=== PATIENT | male | born 1965 | race Caucasian/White ===

== ENCOUNTER 2017-06-22 08:59 | Emergency (ER) | payer OTHER ==
[2017-06-22 09:05] VITALS: BP 138/75
[2017-06-22] MEDS ORDERED: DIPH/PERTUSS(ACELL)/TETANUS VAC/PF 0.5 ML SYR (>=10YO) IM ONE (09:28)
[2017-06-22] MEDS ORDERED: CLINDAMYCIN HCL 150 MG CAPSULE PO ONE (09:28)
--- NOTE | 2017-06-22 09:31 | ER Document Report ---
HPI - HPI Patient complains to provider of: need for tetanus shot Onset: Other - 3 days Onset/Duration: Persistent Quality of pain: Achy Pain Level: 4 Context: Patient states that he stepped up on 8 wood step that broke and the screws scraped his left lower leg. Injury occurred 3 days ago. Patient states wound has continued to use. Patient denies any fever. Patient states that he is here as he needs a tetanus immunization. Associated Symptoms: denies: Fever Exacerbated by: Denies Relieved by: Denies Similar symptoms previously: No Recently seen / treated by doctor: No - ROS ROS below otherwise negative: Yes Systems Reviewed and Negative: Yes All other systems reviewed and negative - CONSTITUTIONAL Constitutional: DENIES: Fever, Chills - REPRODUCTIVE Reproductive: DENIES: : - MUSCULOSKELETAL Musculoskeletal: REPORTS: Extremity pain - DERM Skin Color: Erythema Skin Problems: Abrasion, Laceration Past Medical History - General Information source: Patient - Social History Smoking Status: Never Smoker Frequency of alcohol use: None Drug Abuse: None Occupation: Retired Lives with: Family Family History: Reviewed & Not Pertinent Endocrine Medical History: Reports: Hx Hypothyroidism GI Medical History: Reports: Hx Gastroesophageal Reflux Disease, Hx Irritable Bowel Musculoskeltal Medical History: Reports Hx Arthritis, Reports Hx Musculoskeletal Deformity, Reports Hx Musculoskeletal Trauma Psychiatric Medical History: Reports: Hx Post Traumatic Stress Disorder Traumatic Medical History: Reports: Hx Fractures - finger Past Surgical History: Reports: Hx Adenoidectomy, Hx Nose Surgery, Hx Tonsillectomy - Immunizations Immunizations up to date: Yes Hx Diphtheria, Pertussis, Tetanus Vaccination: Yes Vertical Provider Document - CONSTITUTIONAL Agree With Documented VS: Yes Exam Limitations: No Limitations General Appearance: WD/WN, No Apparent Distress - INFECTION CONTROL TRAVEL OUTSIDE OF THE [place] IN LAST 30 DAYS: No - HEENT HEENT: Atraumatic, Normocephalic - NECK Neck: Normal Inspection - RESPIRATORY Respiratory: No Respiratory Distress O2 Sat by Pulse Oximetry: 99 - MUSCULOSKELETAL/EXTREMETIES Musculoskeletal/Extremeties: MAEW, Tender - Tenderness to lateral aspect of left lower leg, No Edema - NEURO Level of Consciousness: Awake, Alert, Appropriate Motor/Sensory: No Motor Deficit - DERM Integumentary: Warm, Dry, Laceration - Healing laceration to the lateral aspect of left lower extremity. Wound edges erythematous concerning for developing cellulitis Course - Vital Signs Vital signs: Temp Pulse Resp BP Pulse Ox 98.0 F 58 L 20 138/75 H 99 06/22/17 09:04 06/22/17 09:04 06/22/17 09:04 06/22/17 09:04 06/22/17 09:04 Discharge - Discharge Clinical Impression: Leg laceration Qualifiers: Encounter type: initial encounter Laterality: left Qualified Code(s): S81.812A - Laceration without foreign body, left lower leg, initial encounter Cellulitis Qualifiers: Site of cellulitis: extremity Site of cellulitis of extremity: lower extremity Laterality: left Qualified Code(s): L03.116 - Cellulitis of left lower limb Condition: Stable Disposition: HOME, SELF-CARE Instructions: Clindamycin ([facility]), Dressing Instructions for Open Wounds ([facility]), Soap Cleansing ([facility]), Tetanus Immunization Given ([facility]) Additional Instructions: Return immediately for any new or worsening symptoms Followup with your primary care provider, call tomorrow to make a followup appointment Prescriptions: Clindamycin HCl [Cleocin Hcl] 300 mg PO QID #28 capsule Naproxen [Naprosyn 250 Nmg Tablet] 1 tab PO BID #14 tablet Referrals: [facility] [Provider Group] - Follow up as needed
== END 2017-06-22 10:15 | disposition home or self-care (01) ==
LOC: ER 08:59
DX: S81.812A Laceration without foreign body, left lower leg, initial encounter (principal); L03.116 Cellulitis of left lower limb; W26.8XXA Contact with other sharp object(s), not elsewhere classified, initial encounter; Z23 Encounter for immunization
CPT/HCPCS: 90471; 90715; 99282

== ENCOUNTER 2017-07-12 09:38 | Day surgery (SDC) | payer OTHER ==
[~2017-07-12 09:38] MED LIST: PROPOFOL INJ 200 MG/20 ML VIAL IV ONE
[2017-07-12 11:27] VITALS: BP 120/78
--- NOTE | 2017-07-12 11:58 | Operative Report ---
Operative Report DATE OF SURGERY: 07/12/17 Operative Report: The risks, benefits and alternatives of the procedure including risks of bleeding, perforation requiring surgery are explained to the patient in detail and informed consent was obtained. Patient is taken back to the endoscopy suite and placed in a left, lateral decubital position. Timeout was called. Propofol medications administered. A rectal examination is done which did not reveal any masses, tears or fissures. An Olympus videoscope was inserted into the patient's rectum. The scope is then carefully advanced all the way to the cecum. The cecum is identified by the usual anatomical landmarks including the ileocecal valve as well as the appendiceal office. Photodocumentation was obtained. Prep was good. The scope was then sequentially pulled back via the various segments of the colon including the ascending colon, hepatic flexure, transverse colon, splenic flexure, descending colon and finally into the rectosigmoid portions of the colon. Retroflexion maneuvers is performed PREOPERATIVE DIAGNOSIS: Colorectal cancer screening POSTOPERATIVE DIAGNOSIS: Normal screening colonoscopy OPERATION: Diagnostic colonoscopy SURGEON: YVONNE NUÑEZ ANESTHESIA: LMAC TISSUE REMOVED OR ALTERED: None. COMPLICATIONS: None. ESTIMATED BLOOD LOSS: None. INTRAOPERATIVE FINDINGS: As noted above. PROCEDURE: Patient tolerated procedure well. No immediate postprocedure complications are noted. Patient discharged in good condition. Discharge date 07/12/2017. Discharge diet: Regular. Discharge activity: Regular. 10 year surveillance colonoscopy. Patient is instructed to call the office or proceed to the emergency room should there be any further problems or questions.
== END 2017-07-12 10:57 | disposition home or self-care (01) ==
LOC: END 09:38
PROVIDERS: ATTEND Internal Medicine Gastroenterology
DX: Z12.11 Encounter for screening for malignant neoplasm of colon (principal); Z86.010 Personal history of colon polyps; E03.9 Hypothyroidism, unspecified; Z79.899 Other long term (current) drug therapy
CPT/HCPCS: 45378; J2704; 812

== ENCOUNTER 2018-07-27 11:40 | Emergency (ER) | payer OTHER ==
--- NOTE | 2018-07-27 11:47 | ER Document Report ---
ED Medical Screen (RME) - General Chief Complaint: Chest Pain Stated Complaint: CHEST PAIN Primary Care Provider: DEIDRA COOMBS MD [Primary Care Provider] - Follow up as needed TRAVEL OUTSIDE OF THE [place]. IN LAST 30 DAYS: No - HPI Notes: 07/27/18 11:45 Patient is a 53-year-old male with a history of obstructive sleep apnea, hypothyroidism, family history of NH at young age who presents to the emergency department complaining of intermittent chest pain primarily in the left side over the past month that will radiate down into his arm/shoulder. Patient was sent by the [place] [facility] who states that he may have left ventricular hypertrophy on EKG, but no other abnormal findings noted. Nothing improves/worsens his pain. No history of NH/PE. Denies any headache, fever, neck pain, URI, sore throat, palpitations, syncope, cough, shortness of breath, wheeze, dyspnea, abdominal pain, nausea/vomiting/diarrhea, urinary retention, dysuria, hematuria, back pain, or rash. I have treated and performed a rapid initial assessment of this patient. A comprehensive ED assessment and evaluation of the patient, analysis of test results and completion of medical decision making process will be conducted by additional ED providers. PHYSICAL EXAMINATION: GENERAL: Well-appearing, well-nourished and in no acute distress. A&Ox4. Answers questions appropriately. LUNGS: Breath sounds clear to auscultation bilaterally and equal. No wheezes rales or rhonchi. HEART: Regular rate and rhythm without murmurs, rubs, gallops. Extremities: No cyanosis, clubbing, or edema b/l. No LE asymmetry. Rae neg b/l. NEUROLOGICAL: Normal speech, normal gait. PSYCH: Normal mood, normal affect. - Related Data Allergies/Adverse Reactions: Penicillins Allergy (Verified 07/27/18 11:41) Past Medical History - Social History Family history: CAD, CVA, Malignancy - Past Medical History Cardiac Medical History: Denies: Hx Coronary Artery Disease, Hx Heart Attack, Hx Hypertension Pulmonary Medical History: Reports: Hx Pneumonia Denies: Hx Asthma, Hx Bronchitis, Hx COPD Neurological Medical History: Denies: Hx Cerebrovascular Accident, Hx Seizures Endocrine Medical History: Reports: Hx Hypothyroidism Renal/ Medical History: Denies: Hx Peritoneal Dialysis GI Medical History: Reports: Hx Gastroesophageal Reflux Disease, Hx Irritable Bowel Musculoskeltal Medical History: Reports Hx Arthritis, Reports Hx Musculoskeletal Deformity, Reports Hx Musculoskeletal Trauma Psychiatric Medical History: Reports: Hx Post Traumatic Stress Disorder Traumatic Medical History: Reports: Hx Fractures - finger Past Surgical History: Reports: Hx Adenoidectomy, Hx Nose Surgery, Hx Tonsillectomy - Immunizations Immunizations up to date: Yes Hx Diphtheria, Pertussis, Tetanus Vaccination: Yes Influenza Administration Date for 01/2017 - 06/2017 Season: 05/06/17 Doctor's Discharge - Discharge Referrals: DEIDRA COOMBS MD [Primary Care Provider] - Follow up as needed
[2018-07-27 12:37] LABS: ABSOLUTE EOSINOPHILS # (AUTO) 0.1 10^3/uL (0.0-0.6); ABSOLUTE LYMPHOCYTES (AUTO) 1.2 10^3/uL (0.5-4.7); ABSOLUTE MONOCYTES (AUTO) 0.6 10^3/uL (0.1-1.4); ABSOLUTE NEUT (AUTO) 2.3 10^3/uL (1.7-8.2); BASOPHILS % (AUTO) 0.6 % (0-2); EOSINOPHILS % (AUTO) 2.1 % (0-6); HEMATOCRIT 41.5 % (37.9-51.0); HEMOGLOBIN 14.8 g/dL (13.5-17.0); MEAN CORPUSCULAR HEMOGLOBIN 32.7 pg (27.0-33.4); MEAN CORPUSCULAR HGB CONC 35.7 g/dL (32.0-36.0); MEAN CORPUSCULAR VOLUME 91 fl (80-97); MONOCYTES % (AUTO) 14.9 % (3-13); PLATELET COUNT 208 10^3/uL (150-450); RED BLOOD COUNT 4.54 10^6/uL (4.35-5.55); SEGMENTED NEUTROPHILS % (AUTO) 54.4 % (42-78); TOTAL CELLS COUNTED % (AUTO) 100 %; WHITE BLOOD COUNT 4.3 10^3/uL (4.0-10.5)
--- NOTE | 2018-07-27 12:38 | RADIOLOGY REPORT (SQ) ---
EXAM DESCRIPTION: CHEST SINGLE VIEW COMPLETED DATE/TIME: 07/27/2018 12:24 pm REASON FOR STUDY: CP COMPARISON: None. EXAM PARAMETERS: NUMBER OF VIEWS: One view. TECHNIQUE: Single frontal radiographic view of the chest acquired. RADIATION DOSE: NA LIMITATIONS: None. FINDINGS: LUNGS AND PLEURA: There is significant elevation of the left hemidiaphragm with a large ga s lucency beneath the diaphragm. MEDIASTINUM AND HILAR STRUCTURES: No masses. Contour normal. HEART AND VASCULAR STRUCTURES: Heart normal in size. Normal vasculature. BONES: No acute findings. HARDWARE: None in the chest. OTHER: No other significant finding. IMPRESSION: There is significant elevation of the left hemidiaphragm with a large gas lucency beneat h the diaphragm. This is likely colonic gas although a very unusual pneumothorax is not strictly exc luded. Consider CT to further evaluate in the setting of acute referral chest pain. TECHNICAL DOCUMENTATION: JOB ID: [id number] [employer]- All Rights Reserved Reading location - IP/workstation name: [email or web address]
[2018-07-27 12:43] LABS: APPEARANCE,URINE CLEAR; BILIRUBIN,URINE NEGATIVE (NEGATIVE); COLOR,URINE COLORLESS; GLUCOSE, URINE NEGATIVE (NEGATIVE); KETONES,URINE NEGATIVE (NEGATIVE); LEUKOCYTE ESTERASE,URINE NEGATIVE (NEGATIVE); NITRITE,URINE NEGATIVE (NEGATIVE); PROTEIN,URINE NEGATIVE (NEGATIVE); URINE SPECIFIC GRAVITY 1.004; UROBILINOGEN,URINE NEGATIVE mg/dL (<2.0)
[2018-07-27 13:03] LABS: ALANINE AMINOTRANSFERASE 40 U/L (21-72); ALBUMIN 4.3 g/dL (3.5-5.0); ALKALINE PHOSPHATASE 46 U/L (38-126); ANION GAP 7 (5-19); ASPARTATE AMINO TRANSFERASE 29 U/L (17-59); BILIRUBIN,DIRECT 0.3 mg/dL (0.0-0.4); BILIRUBIN,TOTAL 0.8 mg/dL (0.2-1.3); BLOOD UREA NITROGEN 15 mg/dL (7-20); CALCIUM 9.3 mg/dL (8.4-10.2); CARBON DIOXIDE 29 mmol/L (22-30); CHLORIDE 105 mmol/L (98-107); CREATINE KINASE 104 U/L (55-170); POTASSIUM 4.3 mmol/L (3.6-5.0); SODIUM 140.5 mmol/L (137-145); TOTAL PROTEIN 7.4 g/dL (6.3-8.2)
--- NOTE | 2018-07-27 13:10 | ER Document Report ---
ED General - General Chief Complaint: Chest Pain Stated Complaint: CHEST PAIN Time Seen by Provider: 07/27/18 11:59 Primary Care Provider: DEIDRA COOMBS MD [Primary Care Provider] - Follow up as needed Mode of Arrival: Ambulatory Information source: Patient, [facility] Records Notes: 53-year-old male patient is sent from the [place] [facility] for evaluation of 1 month history of intermittent left-sided chest pain radiating to the shoulder, scapula, and arm. They did an EKG and felt it showed some abnormality. He does have a strong family history of early age onset coronary artery disease with a sister and other aunts uncles and grandparents in their 30s and 40s from sudden cardiac events. He has a half brother who had several MIs in his 40s, but has survived and has multiple stents. He does report that he normally rubs his left chest with his left hand and his right chest with his right hand, but this morning rubbed his left chest with his right hand and noted a hard lump swelling along the left parasternal chest region. He is also reported some difficulty with swallowing at times thinking his diaphragm does not move properly. This is subsequent to a Ann fundoplication done about 16 years ago. At the time he had extreme swallowing problems and actually lost about 50 pounds. This morning the patient noted the left anterior chest pain was worse than usual and was also feeling it at his elbow on the left side. Because he felt the knot in his left anterior chest wall he is concerned due to family history of cancer, and the family history of early age onset coronary artery disease and sudden . He went to the [place] clinic to be checked out for this, and they referred him to the emergency room. TRAVEL OUTSIDE OF THE [place] IN LAST 30 DAYS: No - Related Data Allergies/Adverse Reactions: Penicillins Allergy (Verified 07/27/18 11:41) Past Medical History - General Information source: Patient, [facility] Records - Social History Smoking Status: Never Smoker Cigarette use (# per day): No Chew tobacco use (# tins/day): No Smoking Education Provided: No Frequency of alcohol use: None Drug Abuse: None Occupation: Retired Lives with: Family Family History: Reviewed & Not Pertinent Patient has suicidal ideation: No Patient has homicidal ideation: No Pulmonary Medical History: Reports: Hx Pneumonia Endocrine Medical History: Reports: Hx Hypothyroidism GI Medical History: Reports: Hx Gastroesophageal Reflux Disease, Hx Irritable Bowel - IBS diarrhea type. Musculoskeletal Medical History: Reports Hx Arthritis, Reports Hx Musculoskeletal Deformity, Reports Hx Musculoskeletal Trauma Psychiatric Medical History: Reports: Hx Post Traumatic Stress Disorder Traumatic Medical History: Reports: Hx Fractures - finger Past Surgical History: Reports: Hx Abdominal Surgery - Ann fundoplication with hiatal hernia repair about in 2001., Hx Adenoidectomy, Hx Nose Surgery, Hx Tonsillectomy - Immunizations Immunizations up to date: Yes Hx Diphtheria, Pertussis, Tetanus Vaccination: Yes Review of Systems - Review of Systems Constitutional: No symptoms reported EENT: No symptoms reported Cardiovascular: See HPI Respiratory: No symptoms reported Gastrointestinal: Diarrhea - Patient has IBS diarrhea type for the past 40 years Genitourinary: No symptoms reported Musculoskeletal: No symptoms reported Skin: No symptoms reported Hematologic/Lymphatic: No symptoms reported Neurological/Psychological: No symptoms reported Physical Exam - Vital signs Vitals: Pulse Ox 97 07/27/18 11:44 - General General appearance: Appears well, Alert In distress: None - HEENT Head: Normocephalic, Atraumatic Eyes: Normal Pupils: PERRL Neck: Normal - Respiratory Respiratory status: No respiratory distress Breath sounds: Normal Chest palpation: Other - Patient does have a firm type swelling along the left medial sternal region which appears to be gynecomastia. - Cardiovascular Rhythm: Regular Heart sounds: Normal auscultation Murmur: No - Abdominal Inspection: Normal, Healed incision Distension: No distension Bowel sounds: Normal Tenderness: Nontender - Back Back: Normal - Extremities General upper extremity: Normal inspection General lower extremity: Normal inspection - Neurological Neuro grossly intact: Yes - Psychological Associated symptoms: Normal affect, Normal mood - Skin Skin Temperature: Warm Skin Moisture: Dry Skin Color: Normal Course - Vital Signs Vital signs: Temp Pulse Resp BP Pulse Ox 98.1 F 68 20 147/87 H 98 07/27/18 12:05 07/27/18 12:05 07/27/18 12:05 07/27/18 12:05 07/27/18 12:31 - Laboratory Result Diagrams: 07/27/18 12:20 07/27/18 12:20 Laboratory results interpreted by me: 07/27/18 07/27/18 12:20 12:20 Monocytes % 14.9 H Glucose 69 L - Diagnostic Test Radiology reviewed: Image reviewed, Reports reviewed - Chest x-ray shows a large gas collection above the diaphragm. Contrasted CT scan chest abdomen pelvis shows the entire gastric antrum and fundus is above the diaphragm along with a very large hiatal hernia. Discharge - Discharge Clinical Impression: Diaphragmatic hernia Qualifiers: Obstruction and gangrene presence: without obstruction or gangrene Qualified Code(s): K44.9 - Diaphragmatic hernia without obstruction or gangrene Condition: Stable Disposition: HOME, SELF-CARE Additional Instructions: Call [facility] today to schedule an appointment with either Dr. Brady or Dr. Smith in the next several days. RETURN TO THE EMERGENCY ROOM IF ANY NEW OR WORSENING SYMPTOMS. Referrals: DEIDRA COOMBS MD [Primary Care Provider] - Follow up as needed [facility] [Provider Group] - Follow up in 3-5 days
[2018-07-27 13:15] LABS: NT PRO BNP 59 pg/mL (5-900)
[2018-07-27 13:18] LABS: TROPONIN I < 0.012 ng/mL
[2018-07-27 13:19] LABS: GLUCOSE 69 mg/dL (75-110)
--- NOTE | 2018-07-27 14:39 | RADIOLOGY REPORT (SQ) ---
EXAM DESCRIPTION: CT CHEST WITH; CT ABD/PELVIS WITH IV ORAL COMPLETED DATE/TIME: 07/27/2018 2:19 pm; 07/27/2018 2:20 pm REASON FOR STUDY: L parasternal chest wall swelling and pain; swallowing difficulty 16yrs s/p Ann CONTRAST TYPE AND DOSE: contrast/concentration: Isovue mg/ml; Total Contrast Delivered: 98.0 ml; To candido Saline Delivered: 72.0 ml Additional oral enteric contrast. RENAL FUNCTION: GFR > 60. COMPARISON: Same day chest radiograph TECHNIQUE: CT scan of the chest performed using helical scanning technique with dynamic intravenous contrast injection. Images reviewed with lung, soft tissue and bone windows. Reconstructed coronal a nd sagittal MPR images reviewed. All images stored on PACS. All CT scanners at this facility use dose modulation, iterative reconstruction, and/or weight based d osing when appropriate to reduce radiation dose to as low as reasonably achievable (ALARA). [facility]: Dose Right [facility]: CareDose [facility]: Dose Right [facility]: Teradose 4D [facility]: Smart OuiCar RADIATION DOSE: CT Rad equipment meets quality standard of care and radiation dose reduction techniq ues were employed. CTDIvol: NaN - NaN mGy. DLP: 0 mGy-cm.. LIMITATIONS: None. FINDINGS: AXILLAE: No adenopathy. CHEST WALL: No masses. No subcutaneous air. LUNGS: No nodules or masses. No pneumothorax. Scarring and atelectasis of the left lung base adjace nt to a large hiatal hernia. PLEURA: No effusions. No calcifications. THYROID: No masses or significant asymmetry. HILAR AND MEDIASTINAL STRUCTURES: Large hiatal hernia with complete intrathoracic position of the gas tric body and fundus in the left hemithorax. There is no overt gastric volvulus. AORTA AND GREAT VESSELS: No aneurysm. No dissection. PULMONARY ARTERIES: No identified pulmonary emboli. Study not optimized for the pulmonary arteries. HEART: No pericardial effusion. HARDWARE AND LIFELINES: None. BONES: No significant finding. OTHER: No other significant finding. IMPRESSION: Large hiatal hernia with complete intrathoracic position of the gastric body and fundus in the left hemithorax. There is no overt gastric volvulus, however with a hiatal hernia of this siz e, there is a risk of incomplete or intermittent volvulus. Consider surgical evaluation in the setti ng of acute pain. COMPARISON: None. RADIATION DOSE: CT Rad equipment meets quality standard of care and radiation dose reduction techniq ues were employed. CTDIvol: NaN - NaN mGy. DLP: 0 mGy-cm.mGy. TECHNIQUE: CT scan of the abdomen and pelvis performed with intravenous and oral contrast using miroslava dean scanning technique with dynamic intravenous contrast injection. Images reviewed with lung, soft tissue and bone windows. Reconstructed coronal and sagittal MPR images reviewed. Delayed images for evaluation of the urinary system also acquired and evaluated. All images stored on PACS. All CT scanners at this facility use dose modulation, iterative reconstruction, and/or weight based d osing when appropriate to reduce radiation dose to as low as reasonably achievable (ALARA). [facility]: Dose Right [facility]: SureCare [facility]: Dose Right [facility]: Teradose 4D [facility]: Kast FINDINGS: LIVER: Normal size. No masses. No dilated ducts. SPLEEN: Normal size. No focal lesions. PANCREAS: No masses. No significant calcifications. No adjacent inflammation or peripancreatic flui d collections. Pancreatic duct not dilated. GALLBLADDER: No identified stones by CT criteria. No inflammatory changes to suggest cholecystitis. ADRENAL GLANDS: No significant masses or asymmetry. RIGHT KIDNEY AND URETER: No solid masses. No significant calcification. No hydronephrosis or hydroure ter. LEFT KIDNEY AND URETER: No solid masses. No significant calcification. No hydronephrosis or hydrouret er. AORTA AND VESSELS: No aneurysm. No dissection. Renal arteries, SMA, celiac without stenosis. RETROPERITONEUM: No retroperitoneal adenopathy, hemorrhage or masses. LARGE AND SMALL BOWEL: Large hiatal hernia as described above. No dilatation. No masses. No wall t hickening. APPENDIX: Normal. ABDOMINAL WALL: No hernia or masses. PERITONEAL CAVITY: No free air. No free fluid. No peritoneal implants or masses. PELVIS: No mass or free fluid. Normal bladder. BONES: No significant or acute findings. OTHER: No other significant finding. IMPRESSION: Large hiatal hernia as described above with complete intrathoracic position of the stoma ch. No additional CT abnormality of the abdomen or pelvis. TECHNICAL DOCUMENTATION: JOB ID: [id number] Quality ID # [id number]: Final reports with documentation of one or more dose reduction techniques (e.g., Au tomated exposure control, adjustment of the mA and/or kV according to patient size, use of iterative reconstruction technique) 2010 [employer]- All Rights Reserved Reading location - IP/workstation name: [email or web address]
[2018-07-27 15:17] VITALS: BP 126/85
--- NOTE | 2018-07-27 18:49 | EKG REPORT ---
SEVERITY:- ABNORMAL ECG - SINUS RHYTHM CONSIDER LEFT VENTRICULAR HYPERTROPHY : Confirmed by: Shaan Perla MD 27-Jul-2018 18:48:57
== END 2018-07-27 15:16 | disposition home or self-care (01) ==
LOC: ER 11:40
DX: K44.9 Diaphragmatic hernia without obstruction or gangrene (principal); R07.9 Chest pain, unspecified; R13.10 Dysphagia, unspecified; M25.522 Pain in left elbow; R19.7 Diarrhea, unspecified; Z88.0 Allergy status to penicillin; Z82.49 Family history of ischemic heart disease and other diseases of the circulatory system
CPT/HCPCS: 36415; 71045; 71260; 74177; 80053; 81001; 82550; 83880; 84484; 85025; 93005; 93010; 99285

== ENCOUNTER 2018-07-29 17:21 | Emergency (ER) | payer OTHER ==
--- NOTE | 2018-07-29 18:18 | ER Document Report ---
ED Medical Screen (RME) - General Chief Complaint: Chest Pain Stated Complaint: DIFFICULTY BREATHING Time Seen by Provider: 07/29/18 18:09 Primary Care Provider: DEIDRA COOMBS MD [Primary Care Provider] - Follow up as needed Notes: Patient is a 53-year-old male with a recently diagnosed diaphragmatic hernia who presents to the ED with worsening pain and discomfort. Patient reports no vomiting but states he does have some nausea. He does have a history of hiatal hernia repair which prevents him from vomiting. Patient has not had fever. Patient does come with [facility] in hand regarding his recent diagnoses. Exam: Abdomen soft without obvious distention. Patient alert, oriented, answering all questions appropriately. I have greeted and performed a rapid initial assessment of this patient. A co mprehensive ED assessment and evaluation of the patient, analysis of test results and completion of the medical decision making process will be conducted by additional ED providers. Dictation of this chart was performed using voice recognition software; therefore, there may be some unintended grammatical errors. TRAVEL OUTSIDE OF THE [place]. IN LAST 30 DAYS: No - Related Data Allergies/Adverse Reactions: Penicillins Allergy (Verified 07/27/18 11:41) Past Medical History - Social History Family history: CAD, CVA, Malignancy - Past Medical History Cardiac Medical History: Denies: Hx Coronary Artery Disease, Hx Heart Attack, Hx Hypertension Pulmonary Medical History: Reports: Hx Pneumonia Denies: Hx Asthma, Hx Bronchitis, Hx COPD Neurological Medical History: Denies: Hx Cerebrovascular Accident, Hx Seizures Endocrine Medical History: Reports: Hx Hypothyroidism Renal/ Medical History: Denies: Hx Peritoneal Dialysis GI Medical History: Reports: Hx Gastroesophageal Reflux Disease, Hx Irritable Bowel - IBS diarrhea type. Musculoskeltal Medical History: Reports Hx Arthritis, Reports Hx Musculoskeletal Deformity, Reports Hx Musculoskeletal Trauma Psychiatric Medical History: Reports: Hx Post Traumatic Stress Disorder Traumatic Medical History: Reports: Hx Fractures - finger Past Surgical History: Reports: Hx Abdominal Surgery - Ann fundoplication with hiatal hernia repair about in 2001., Hx Adenoidectomy, Hx Nose Surgery, Hx Tonsillectomy - Immunizations Immunizations up to date: Yes Hx Diphtheria, Pertussis, Tetanus Vaccination: Yes Influenza Administration Date for 01/2017 - 06/2017 Season: 05/06/17 Physical Exam - Vital signs Vitals: Temp Pulse Resp BP Pulse Ox 98.3 F 99 15 118/74 95 07/29/18 17:45 07/29/18 17:45 07/29/18 17:45 07/29/18 17:45 07/29/18 17:45 Course - Vital Signs Vital signs: Temp Pulse Resp BP Pulse Ox 98.3 F 99 15 118/74 95 07/29/18 17:45 07/29/18 17:45 07/29/18 17:45 07/29/18 17:45 07/29/18 17:45 Doctor's Discharge - Discharge Referrals: DEIDRA COOMBS MD [Primary Care Provider] - Follow up as needed
--- NOTE | 2018-07-29 18:37 | EKG REPORT ---
SEVERITY:- ABNORMAL ECG - SINUS RHYTHM NONSPECIFIC T ABNORMALITIES, LATERAL LEADS : Confirmed by: Shaan Perla MD 29-Jul-2018 18:36:38
[2018-07-29 18:42] LABS: ABSOLUTE EOSINOPHILS # (AUTO) 0.1 10^3/uL (0.0-0.6); ABSOLUTE LYMPHOCYTES (AUTO) 1.2 10^3/uL (0.5-4.7); ABSOLUTE MONOCYTES (AUTO) 0.7 10^3/uL (0.1-1.4); ABSOLUTE NEUT (AUTO) 2.4 10^3/uL (1.7-8.2); BASOPHILS % (AUTO) 0.6 % (0-2); EOSINOPHILS % (AUTO) 2.3 % (0-6); HEMATOCRIT 42.8 % (37.9-51.0); LYMPHOCYTES % (AUTO) 26.8 % (13-45); MEAN CORPUSCULAR HEMOGLOBIN 32.4 pg (27.0-33.4); MEAN CORPUSCULAR VOLUME 93 fl (80-97); MONOCYTES % (AUTO) 14.8 % (3-13); PLATELET COUNT 213 10^3/uL (150-450); RED BLOOD COUNT 4.62 10^6/uL (4.35-5.55); RED CELL DISTRIBUTION WIDTH 13.5 % (11.5-14.0); SEGMENTED NEUTROPHILS % (AUTO) 55.5 % (42-78); TOTAL CELLS COUNTED % (AUTO) 100 %; WHITE BLOOD COUNT 4.4 10^3/uL (4.0-10.5)
[2018-07-29 19:02] LABS: ALANINE AMINOTRANSFERASE 28 U/L (21-72); ALBUMIN 4.3 g/dL (3.5-5.0); ALKALINE PHOSPHATASE 47 U/L (38-126); ANION GAP 7 (5-19); ASPARTATE AMINO TRANSFERASE 33 U/L (17-59); BILIRUBIN,DIRECT 0.4 mg/dL (0.0-0.4); BILIRUBIN,TOTAL 0.9 mg/dL (0.2-1.3); BLOOD UREA NITROGEN 13 mg/dL (7-20); CALCIUM 9.7 mg/dL (8.4-10.2); CARBON DIOXIDE 28 mmol/L (22-30); CHLORIDE 107 mmol/L (98-107); GLUCOSE 79 mg/dL (75-110); POTASSIUM 4.7 mmol/L (3.6-5.0); SODIUM 141.6 mmol/L (137-145); TOTAL PROTEIN 7.5 g/dL (6.3-8.2)
--- NOTE | 2018-07-29 23:44 | ER Document Report ---
ED General - General Chief Complaint: Chest Pain Stated Complaint: DIFFICULTY BREATHING Time Seen by Provider: 07/29/18 18:09 Primary Care Provider: DEIDRA COOMBS MD [NO LOCAL MD] - Follow up as needed Notes: Patient is a 53-year-old male with a past medical history of a Ann fundal location, prior hiatal hernia repair, presents with 1 month of chest discomfort, shortness of breath, nausea and intermittent dry heaving. States that his symptoms became worse within the past 1 week. Was seen in the emergency room 2 days ago for the same, had an extensive workup that did show a very prominent hiatal hernia. [facility], was instructed to return to the emergency department. So nothing is new or different otherwise regarding his symptoms today. Does describe his symptoms as being moderate to severe, constant in nature, pressure-like sensation in the [place]. No radiation of the pain. States that he feels nauseated but has not had diaphoresis. Denies any of breath. Denies any known history of coronary artery disease. No history of DVT or pulmonary embolus. TRAVEL OUTSIDE OF THE [place] IN LAST 30 DAYS: No - Related Data Allergies/Adverse Reactions: Penicillins Allergy (Verified 07/27/18 11:41) Past Medical History - General Information source: Patient - Social History Smoking Status: Never Smoker Frequency of alcohol use: None Drug Abuse: None Lives with: Family Family History: Reviewed & Not Pertinent Patient has suicidal ideation: No Patient has homicidal ideation: No - Past Medical History Cardiac Medical History: Denies: Hx Coronary Artery Disease, Hx Heart Attack, Hx Hypertension Pulmonary Medical History: Reports: Hx Pneumonia Denies: Hx Asthma, Hx Bronchitis, Hx COPD Neurological Medical History: Denies: Hx Cerebrovascular Accident, Hx Seizures Endocrine Medical History: Reports: Hx Hypothyroidism Renal/ Medical History: Denies: Hx Peritoneal Dialysis GI Medical History: Reports: Hx Gastroesophageal Reflux Disease, Hx Irritable B owel - IBS diarrhea type. Musculoskeletal Medical History: Reports Hx Arthritis, Reports Hx Musculoskeletal Deformity, Reports Hx Musculoskeletal Trauma Psychiatric Medical History: Reports: Hx Post Traumatic Stress Disorder Traumatic Medical History: Reports: Hx Fractures - finger Past Surgical History: Reports: Hx Abdominal Surgery - Ann fundoplication with hiatal hernia repair about in 2001., Hx Adenoidectomy, Hx Nose Surgery, Hx Tonsillectomy - Immunizations Immunizations up to date: Yes Hx Diphtheria, Pertussis, Tetanus Vaccination: Yes Review of Systems - Review of Systems Notes: Constitutional: Negative for fever. HENT: Negative for sore throat. Eyes: Negative for visual changes. Cardiovascular: Positive for chest discomfort Respiratory: Negative for shortness of breath. Gastrointestinal: Negative for abdominal pain, positive for nausea Genitourinary: Negative for dysuria. Musculoskeletal: Negative for back pain. Skin: Negative for rash. Neurological: Negative for headaches, weakness or numbness. 10 point ROS negative except as marked above and in HPI. Physical Exam - Vital signs Vitals: Temp Pulse Resp BP Pulse Ox 98.3 F 99 15 118/74 95 07/29/18 17:45 07/29/18 17:45 07/29/18 17:45 07/29/18 17:45 07/29/18 17:45 Interpretation: Normal Notes: PHYSICAL EXAMINATION: GENERAL: Well-appearing, well-nourished and in no acute distress. HEAD: Atraumatic, normocephalic. EYES: Pupils equal round and reactive to light, extraocular movements intact, sclera anicteric, conjunctiva are normal. ENT: nares patent, oropharynx clear without exudates. Moist mucous membranes. NECK: Normal range of motion, supple without lymphadenopathy LUNGS: Breath sounds clear to auscultation bilaterally and equal. No wheezes rales or rhonchi. HEART: Regular rate and rhythm without murmurs ABDOMEN: Soft, nontender, normoactive bowel sounds. No guarding, no rebound. No masses appreciated. EXTREMITIES: Normal range of motion, no pitting or edema. No cyanosis. NEUROLOGICAL: No focal neurological deficits. Moves all extremities spontaneously and on command. PSYCH: Normal mood, normal affect. SKIN: Warm, Dry, normal turgor, no rashes or lesions noted. Course - Re-evaluation Re-evalutation: 07/29/18 23:42 Patient presents with unchanged symptoms from 07/27. At that time he had a CTA of his chest CT abdomen pelvis which did demonstrate a significant hiatal hernia in the thoracic cavity. The [facility], encouraged to come back to the emergency department given the ongoing nature of his chest discomfort, stomach heaviness and shortness of breath. His EKG, labs unchanged. I do not believe repeat CT imaging of the chest abdomen pelvis is indicated today as this was completed less than 48 hours ago and the patient does not demonstrate symptoms that would suggest an acute volvulus or twisting of his la rge hiatal hernia. He is resting comfortably, holding a long conversation with me in a very calm tone and denies any significant pain. He also is very clear to state that his pain is in no way shape or form different than when he was here on 07/27 only that has not gotten better. I have advised him that he will need to follow closely with general surgery as he likely requires operative repair of his very large hiatal hernia. He states understanding. At this time will discharge with return precautions and follow-up recommendations. Verbal discharge instructions given a the bedside and opportunity for questions given. Medication warnings reviewed. Patient is in agreement with this plan and has verbalized understanding of return precautions and the need for primary care follow-up in the next 24-72 hours. - Vital Signs Vital signs: Temp Pulse Resp BP Pulse Ox 97.5 F 64 19 141/89 H 100 07/29/18 23:58 07/29/18 23:58 07/29/18 23:58 07/29/18 23:58 07/29/18 23:58 - Laboratory Result Diagrams: 07/29/18 18:23 07/29/18 18:23 Laboratory results interpreted by me: 07/29/18 18:23 Monocytes % 14.8 H - EKG Interpretation by Me Additional EKG results interpreted by me: 07/29/18 23:43 Sinus rhythm, rate 90. No ST elevations or depressions. Unchanged from previous EKG. Discharge - Discharge Clinical Impression: Chest discomfort Diaphragmatic hernia Qualifiers: Obstruction and gangrene presence: without obstruction or gangrene Qualified Code(s): K44.9 - Diaphragmatic hernia without obstruction or gangrene Condition: Good Disposition: HOME, SELF-CARE Additional Instructions: Please follow-up very closely with general surgery regarding your very large hiatal hernia. Please return immediately if you have worsening of your pain especially abruptly, began having severe nausea dry heaving, increased shortness of breath, pass out or have any other symptoms that are worrisome to you Prescriptions: Promethazine HCl [Phenergan 25 mg Tablet] 1 - 2 tab PO Q6H PRN #15 tablet PRN Reason: Referrals: MASQUIL,DEIDRA, MD [NO LOCAL MD] - Follow up as needed
[2018-07-29] MEDS ORDERED: PROMETHAZINE HCL 25 MG TABLET PO ONE (23:45)
[2018-07-29 23:59] VITALS: BP 141/89
== END 2018-07-29 23:59 | disposition home or self-care (01) ==
LOC: ER 17:21
DX: K44.9 Diaphragmatic hernia without obstruction or gangrene (principal); R07.9 Chest pain, unspecified; R06.02 Shortness of breath; R11.0 Nausea; Z98.890 Other specified postprocedural states; Z88.0 Allergy status to penicillin; Z87.01 Personal history of pneumonia (recurrent); Z87.19 Personal history of other diseases of the digestive system
CPT/HCPCS: 36415; 80053; 84484; 85025; 93005; 93010; 99283

== ENCOUNTER → 2018-09-21 | Outpatient (CLI) | payer OTHER ==
[~2018-09-21] MED LIST changes: -PROPOFOL INJ 200 MG/20 ML VIAL IV ONE; +REGADENOSON INJ 0.4 MG/5 ML DISP.SYRIN IV ONE
--- NOTE | 2018-09-21 21:16 | DRAGON STRESS TEST REPORT ---
Intravenous Lexiscan Cardiolite stress test using single photon emmision computerized tomography. Date of procedure: 09/21/2018. Ordering Provider: Dr. aHley Velez. Patient's status: Out Patient. Indication: Patient with history of coronary artery disease for preoperative cardiac risk assessment. Coronary risk factors: Age. Resting EKG: Sinus Rhythm. EKG within normal limits. Stress EKG: No changes of ischemia. Patient had no chest pain or discomfort, and there were no arrhythmias seen. Reason for termination: Protocol. Conclusions: Normal EKG and hemodynamic response to IV Lexiscan. Nuclear data: At rest the patient was given 12.79 millicuries of technetium 99m sestamibi injected intravenously. As per protocol rest non gated SPECT images were obtained. Subsequently the patient was given intravenous Lexiscan at a dose of 0.4 mg in 5 mL intravenously, followed by flush with normal saline. Subsequently the stress dose of 36.5 millicuries of technetium 99m sestamibi was injected intravenously. As per protocol stress gated images were obtained. Nuclear interpretation: Review of images showed that there is a small area of perfusion defect of mild intensity involving the apical lateral wall in both the rest and stress images. This area is normal thickening. The rest of the segments of the myocardium had normal perfusion at rest, and normal perfusion post stress with IV Lexiscan. All segments of the myocardium had normal thickening by gated study. The left ventricle was mildly dilated, and there was mild global hypokinesis. T. I D. ratio was normal at 1.18. There is no transient ischemic dilatation of the left ventricle. Computer read rest, and stress left ventricular ejection fraction were 51 %, and 46 %, respectively. Conclusion: 1. There is no scintigraphic evidence of Lexiscan induced myocardial ischemia. 2. There is no scintigraphic evidence of myocardial infarction/scar. 3. Evidence of mild LV systolic dysfunction with mildly dilated left ventricle on the rest and stress studies. 4. Small area of soft tissue attenuation artifact involving the apical lateral wall Recommendations: 1. RECOMMEND echocardiogram for LV ejection fraction correlation. 2. Correlate clinically 3.. aggressive risk factor modification, and treating the underlying co- morbidities. Discussed with Dr. Velez the above results on the telephone. [facility] MEDICAL CENTERFlaquito
== END ==
LOC: RAD 08:53
PROVIDERS: ATTEND Internal Medicine
DX: Z01.810 Encounter for preprocedural cardiovascular examination (principal); I25.9 Chronic ischemic heart disease, unspecified
CPT/HCPCS: 93017; 78452; A9500; J2785; Q9969

== ENCOUNTER 2018-10-25 06:56 | Day surgery (SDC) | payer OTHER ==
[2018-10-04 12:07] LABS: ABSOLUTE EOSINOPHILS # (AUTO) 0.1 10^3/uL (0.0-0.6); ABSOLUTE LYMPHOCYTES (AUTO) 1.2 10^3/uL (0.5-4.7); ABSOLUTE MONOCYTES (AUTO) 0.6 10^3/uL (0.1-1.4); ABSOLUTE NEUT (AUTO) 2.1 10^3/uL (1.7-8.2); BASOPHILS % (AUTO) 0.6 % (0-2); EOSINOPHILS % (AUTO) 3.6 % (0-6); HEMATOCRIT 42.7 % (37.9-51.0); HEMOGLOBIN 14.9 g/dL (13.5-17.0); LYMPHOCYTES % (AUTO) 29.3 % (13-45); MEAN CORPUSCULAR HEMOGLOBIN 32.4 pg (27.0-33.4); MEAN CORPUSCULAR VOLUME 93 fl (80-97); MONOCYTES % (AUTO) 14.3 % (3-13); PLATELET COUNT 183 10^3/uL (150-450); RED BLOOD COUNT 4.61 10^6/uL (4.35-5.55); RED CELL DISTRIBUTION WIDTH 12.8 % (11.5-14.0); SEGMENTED NEUTROPHILS % (AUTO) 52.2 % (42-78); TOTAL CELLS COUNTED % (AUTO) 100 %; WHITE BLOOD COUNT 4.1 10^3/uL (4.0-10.5)
[2018-10-04 12:30] LABS: ANION GAP 10 (5-19); BLOOD UREA NITROGEN 13 mg/dL (7-20); CALCIUM 9.4 mg/dL (8.4-10.2); CARBON DIOXIDE 31 mmol/L (22-30); CHLORIDE 101 mmol/L (98-107); GLUCOSE 80 mg/dL (75-110); POTASSIUM 4.3 mmol/L (3.6-5.0); SODIUM 141.5 mmol/L (137-145)
--- NOTE | 2018-10-04 12:53 | EKG REPORT ---
SEVERITY:- ABNORMAL ECG - SINUS RHYTHM CONSIDER LEFT VENTRICULAR HYPERTROPHY : Confirmed by: Shaan Perla MD 04-Oct-2018 12:53:32
[~2018-10-25 06:56] MED LIST changes: +LACTATED RINGERS 1000 ML IV PRN; +LIDOCAINE 0.5% INJ-PF (5 MG/ML) 50 ML SDV SUBCUT PRN; +MIDAZOLAM 2 MG/2 ML INJ ONE; +PROPOFOL INJ 200 MG/20 ML VIAL IV ONE; -REGADENOSON INJ 0.4 MG/5 ML DISP.SYRIN IV ONE
[2018-10-25] MEDS ORDERED: PROPOFOL INJ 200 MG/20 ML VIAL IV ONE (07:30)
[2018-10-25] MEDS ORDERED: LIDOCAINE 2% INJ-PF (100 MG/5 ML) SYRINGE ONE (07:30)
[2018-10-25] MEDS ORDERED: ONDANSETRON HCL INJ/PF 4 MG/2 ML SDV IV PRN (08:52)
[2018-10-25] MEDS ORDERED: DIPHENHYDRAMINE HCL 50 MG/ML VIAL IV PRN (08:52)
[2018-10-25] MEDS ORDERED: MEPERIDINE HCL/PF INJ 25 MG/1 ML DISP.SYRIN IV PRN (08:52)
--- NOTE | 2018-10-25 09:20 | Operative Report ---
Nonrecallable Operative Report DATE OF SURGERY: 10/25/18 PREOPERATIVE DIAGNOSIS: Large hiatal hernia with intrathoracic stomach POSTOPERATIVE DIAGNOSIS: 1. Large hiatal hernia with intrathoracic stomach. 2. Reflux esophagitis. 3. Mild gastritis. OPERATION: EGD with biopsy SURGEON: MIGUEL COLBY ANESTHESIA: LMAC TISSUE REMOVED OR ALTERED: GE junction COMPLICATIONS: None apparent. ESTIMATED BLOOD LOSS: Minimal PROCEDURE: Procedure in detail: After informed consent was obtained, the patient was brought to the operating room and laid in the left lateral decubitus position. The endoscope was passed down the oropharynx, down the esophagus, and into the stomach. The stomach was insufflated with air. Stomach was in an unusual configuration, consistent with the patient's history of chronic gastric volvulus. There was some difficulty getting the scope into the duodenum, however this was successful. The duodenum appeared normal. Scope was pulled back into the gastric antrum were mild amount of gastritis was identified. Retroflexion maneuver was performed, noting no significant ulcerations or gastri tis in the cardia of the stomach. The scope was pulled up into the GE junction. There was reflux esophagitis present. Biopsy was taken at the GE junction. The GE junction appeared to reside at approximately 35 cm. The scope was pulled up the remainder of the esophagus. The remainder of the esophagus was smooth in contour without masses, lesions, or other significant abnormalities. Scope was removed from the oropharynx, and the procedure was concluded. All sponge, instrument, needle counts were correct x2. Condition: Stable.
--- NOTE | 2018-10-25 09:21 | Discharge Summary ---
Discharge Summary (SDC) - Discharge Final Diagnosis: Intrathoracic stomach, reflux esophagitis, large hiatal hernia. Date of Surgery: 10/25/18 Discharge Date: 10/25/18 Condition: Stable Treatment or Instructions: Discharge home. Diet as tolerated. Activity: Nonstrenuous. Follow-up in my office next week. [facility]errals: [facility] [[facility] - Discharge Diet: As Tolerated Respiratory Treatments at Home: Deep Breathing/Coughing, Incentive Spirometer Discharge Activity: Balance Activity w/Rest Home Care Assistance: None Needed Report the Following to Your Physician Immediately: Shortness of Breath, Nausea, Vomiting, Increase in Pain, Fever over 101 Degrees, Unusual Bleeding, Redness
[2018-10-25 10:43] VITALS: BP 133/90
[2018-10-25] MEDS ORDERED: GLYCOPYRROLATE 1 MG/5 ML VIAL ONE (11:33)
== END 2018-10-25 10:30 | disposition home or self-care (01) ==
LOC: OROUT 06:56
PROVIDERS: ATTEND Surgery
DX: K31.89 Other diseases of stomach and duodenum (principal); K44.9 Diaphragmatic hernia without obstruction or gangrene; K21.0 Gastro-esophageal reflux disease with esophagitis; K29.50 Unspecified chronic gastritis without bleeding; R06.02 Shortness of breath; E03.9 Hypothyroidism, unspecified; G47.33 Obstructive sleep apnea (adult) (pediatric); I20.9 Angina pectoris, unspecified
CPT/HCPCS: 43239; 93005; 36415; 85025; 80048; 88342 ×2; 88305 ×2; 93010; 00731; J2001; J2704; J3490; 731; J2250

== ENCOUNTER → 2018-12-02 | Day surgery (SDC) | payer OTHER ==
[~2018-12-02] MED LIST changes: -LACTATED RINGERS 1000 ML IV PRN; -LIDOCAINE 0.5% INJ-PF (5 MG/ML) 50 ML SDV SUBCUT PRN; +LIDOCAINE 2% JELLY 5 ML TUBE ONE; -MIDAZOLAM 2 MG/2 ML INJ ONE; -PROPOFOL INJ 200 MG/20 ML VIAL IV ONE
== END ==
LOC: END 10:00
PROVIDERS: ATTEND Surgery
DX: K44.9 Diaphragmatic hernia without obstruction or gangrene (principal); K21.9 Gastro-esophageal reflux disease without esophagitis
CPT/HCPCS: 91010

== ENCOUNTER 2018-12-09 05:20 | Inpatient (IN) | payer OTHER ==
[2018-12-01 10:49] LABS: HEMATOCRIT 40.9 % (37.9-51.0); HEMOGLOBIN 14.4 g/dL (13.5-17.0); MEAN CORPUSCULAR HEMOGLOBIN 32.4 pg (27.0-33.4); MEAN CORPUSCULAR HGB CONC 35.2 g/dL (32.0-36.0); MEAN CORPUSCULAR VOLUME 92 fl (80-97); PLATELET COUNT 198 10^3/uL (150-450); RED BLOOD COUNT 4.44 10^6/uL (4.35-5.55); RED CELL DISTRIBUTION WIDTH 13.5 % (11.5-14.0); WHITE BLOOD COUNT 4.4 10^3/uL (4.0-10.5)
--- NOTE | 2018-12-01 11:05 | RADIOLOGY REPORT (SQ) ---
EXAM DESCRIPTION: CHEST PA/LATERAL COMPLETED DATE/TIME: 12/01/2018 10:23 am REASON FOR STUDY: COUGH preop chest for paraesophageal hernia repair COMPARISON: CT chest abdomen pelvis 07/27/2018 AP chest 07/27/2018 EXAM PARAMETERS: NUMBER OF VIEWS: two views TECHNIQUE: Digital Frontal and Lateral radiographic views of the chest acquired. RADIATION DOSE: NA LIMITATIONS: none FINDINGS: LUNGS AND PLEURA: No opacities, masses or pneumothorax. No pleural effusion. MEDIASTINUM AND HILAR STRUCTURES: No masses or contour abnormalities. HEART AND VASCULAR STRUCTURES: Heart normal size. No evidence for failure. BONES: No acute findings. HARDWARE: None in the chest. OTHER: There is a large left paraesophageal hernia containing the GE junction, stomach fundus and bod y projected as a lucency with air-fluid level under the left hemidiaphragm. This correlates with CT chest 07/27/2018. IMPRESSION: No acute infiltrates. Large left paraesophageal hernia containing the stomach fundus and body. TECHNICAL DOCUMENTATION: JOB ID: [id number] [employer]- All Rights Reserved Reading location - IP/workstation name: [email or web address]
[2018-12-01 11:16] LABS: ANION GAP 7 (5-19); BLOOD UREA NITROGEN 15 mg/dL (7-20); CALCIUM 9.6 mg/dL (8.4-10.2); CARBON DIOXIDE 31 mmol/L (22-30); CHLORIDE 102 mmol/L (98-107); GLUCOSE 93 mg/dL (75-110); POTASSIUM 4.8 mmol/L (3.6-5.0)
--- NOTE | 2018-12-01 12:53 | EKG REPORT ---
SEVERITY:- ABNORMAL ECG - SINUS RHYTHM PROBABLE LEFT VENTRICULAR HYPERTROPHY TALL R WAVE IN V2, CONSIDER RVH OR PMI : Confirmed by: Shaan Perla MD 01-Dec-2018 12:52:59
[~2018-12-09 05:20] MED LIST changes: +ACETAMINOPHEN 325 MG TABLET PO PRN; +IBUPROFEN 800 MG in NORMAL SALINE 250 ML IV PRN; +LACTATED RINGERS 1000 ML IV PRN; +LIDOCAINE 0.5% INJ-PF (5 MG/ML) 50 ML SDV SUBCUT PRN; -LIDOCAINE 2% JELLY 5 ML TUBE ONE; +PREGABALIN 50 MG CAPSULE PO PRN; +VANCOMYCIN HCL 1,000 MG in DEXTROSE 5%-WATER 250 ML IV PRN
[2018-12-09] MEDS ORDERED: PREGABALIN 50 MG CAPSULE ONE (05:35)
[2018-12-09] MEDS ORDERED: ACETAMINOPHEN 325 MG TABLET ONE (05:35)
[2018-12-09] MEDS ORDERED: MIDAZOLAM 2 MG/2 ML INJ ONE (06:44)
[2018-12-09] MEDS ORDERED: PROPOFOL INJ 200 MG/20 ML VIAL IV ONE (06:44)
[2018-12-09] MEDS ORDERED: FENTANYL CITRATE INJ/PF 250 MCG/5 ML AMPULE ONE ×2 (06:44→09:38)
[2018-12-09] MEDS ORDERED: PROMETHAZINE HCL INJ 25 MG/1 ML VIAL IV PRN ×2 (07:04)
[2018-12-09] MEDS ORDERED: DIPHENHYDRAMINE HCL 50 MG/ML VIAL IV PRN (07:04)
[2018-12-09] MEDS ORDERED: MEPERIDINE HCL/PF INJ 25 MG/1 ML DISP.SYRIN IV PRN (07:04)
[2018-12-09] MEDS ORDERED: OXYCODONE-ACETAMINOPHEN 5-325 MG TABLET PO PRN ×2 (07:04)
[2018-12-09] MEDS ORDERED: FENTANYL CITRATE INJ/PF 100 MCG/2 ML AMPUL IV PRN ×3 (07:04)
[2018-12-09] MEDS ORDERED: MORPHINE SULFATE 10 MG/ML INJ IV PRN (07:04)
[2018-12-09] MEDS ORDERED: BUPIVACAINE HCL 0.25 % INJ/PF (2.5 MG/1 ML) 30 ML VIAL ONE (07:21)
[2018-12-09] MEDS ORDERED: SCOPOLAMINE HYDROBROMIDE 1.5 MG PATCH.TD72 ONE (07:30)
[2018-12-09] MEDS ORDERED: DEXAMETHASONE SOD PHOSPHATE INJ 4 MG/1 ML VIAL ONE (09:52)
[2018-12-09] MEDS ORDERED: ROCURONIUM BROMIDE INJ 50 MG/5 ML VIAL IV ONE (09:52)
[2018-12-09] MEDS ORDERED: PHENYLEPHRINE HCL INJ/PF 10 MG/1 ML SDV ONE (09:52)
[2018-12-09] MEDS ORDERED: GLYCOPYRROLATE 1 MG/5 ML VIAL ONE (09:52)
[2018-12-09] MEDS ORDERED: ONDANSETRON HCL INJ/PF 4 MG/2 ML SDV ONE (09:52)
[2018-12-09] MEDS ORDERED: NEOSTIGMINE METHYLSULFATE 10 MG/10 ML VIAL ONE (09:52)
[2018-12-09] MEDS ORDERED: LIDOCAINE 2% INJ-PF (20 MG/ML) 2 ML AMPUL ONE (09:52)
[2018-12-09] MEDS ORDERED: METOCLOPRAMIDE HCL INJ/PF 10 MG/2 ML SDV ONE (09:52)
[2018-12-09] MEDS ORDERED: BUPIVACAINE INJ/PF LIPOSOME/PF 266 MG/20 ML SDV ONE (13:29)
[2018-12-09] MEDS ORDERED: FUROSEMIDE INJ/PF 40 MG/4 ML SDV ONE (14:23)
[2018-12-09] MEDS ORDERED: EPHEDRINE SULFATE INJ 50 MG/1 ML AMPULE ONE (14:24)
[2018-12-09] MEDS ORDERED: GLUCAGON,HUMAN RECOMB 1 MG INJ SUBCUT PRN (14:38)
[2018-12-09] MEDS ORDERED: DEXTROSE 50%-WATER 25 GM/50 ML DISP.SYRIN IV PRN ×2 (14:38)
[2018-12-09] MEDS ORDERED: DEXTROSE 40% GEL 15 GM TUBE PO PRN ×2 (14:38)
[2018-12-09] MEDS ORDERED: METRONIDAZOLE 500 MG/NS RTU 500 MG/100 ML RTUPB IV ONE (14:42)
[2018-12-09] MEDS ORDERED: HYDROMORPHONE HCL INJ/PF 2 MG/ML AMPULE ONE ×2 (14:55→17:02)
[2018-12-09] MEDS: HYDROMORPHONE HCL INJ/PF 2 MG/ML AMPULE ONE ×2 (14:57→15:14)
[2018-12-09] MEDS ORDERED: ONDANSETRON HCL INJ/PF 4 MG/2 ML SDV IV PRN (14:58)
[2018-12-09] MEDS: ONDANSETRON HCL INJ/PF 4 MG/2 ML SDV IV PRN ×2 (16:44→20:28)
[2018-12-09] MEDS: MORPHINE SULFATE 60 MG/60 ML RTUINJ IV PRN (18:55)
[2018-12-09] MEDS ORDERED: VANCOMYCIN HCL 1,000 MG in DEXTROSE 5%-WATER 250 ML IV ONE ×4 (19:30)
[2018-12-09] MEDS ORDERED: FAMOTIDINE 20 MG TABLET PO SCH (22:00)
[2018-12-09] MEDS: KETOROLAC TROMETHAMINE INJ/PF 30 MG/1 ML SDV IV SCH (22:29)
[2018-12-09] MEDS: METRONIDAZOLE 500 MG/NS RTU 500 MG/100 ML RTUPB IV SCH (22:29)
[2018-12-09] MEDS: DEXTROSE 5%-LACTATED RINGERS 1,000 ML IV PRN (22:31)
--- NOTE | 2018-12-09 23:37 | RADIOLOGY REPORT (SQ) ---
XR CHEST 1 VIEW CLINICAL STATEMENT: SOB increased pain postop;tachycardic. COMPARISON: 12/01/2018. 08/13/2018. FINDINGS: Heart is moderately enlarged. Enteric tube is in place with tip below the diaphragm in the stomach. Mild left basilar atelectasis. No pneumothorax. No pulmonary edema. IMPRESSION: Left basilar atelectatic changes.
[2018-12-10 04:21] LABS: ABSOLUTE LYMPHOCYTES (AUTO) 0.7 10^3/uL (0.5-4.7); ABSOLUTE MONOCYTES (AUTO) 0.8 10^3/uL (0.1-1.4); ABSOLUTE NEUT (AUTO) 8.2 10^3/uL (1.7-8.2); HEMATOCRIT 40.4 % (37.9-51.0); HEMOGLOBIN 14.1 g/dL (13.5-17.0); LYMPHOCYTES % (AUTO) 7.2 % (13-45); MEAN CORPUSCULAR HEMOGLOBIN 32.8 pg (27.0-33.4); MEAN CORPUSCULAR VOLUME 94 fl (80-97); MONOCYTES % (AUTO) 8.2 % (3-13); PLATELET COUNT 204 10^3/uL (150-450); RED BLOOD COUNT 4.31 10^6/uL (4.35-5.55); RED CELL DISTRIBUTION WIDTH 13.6 % (11.5-14.0); SEGMENTED NEUTROPHILS % (AUTO) 84.6 % (42-78); TOTAL CELLS COUNTED % (AUTO) 100 %; WHITE BLOOD COUNT 9.7 10^3/uL (4.0-10.5)
[2018-12-10 04:45] LABS: ANION GAP 8 (5-19); BLOOD UREA NITROGEN 21 mg/dL (7-20); CALCIUM 7.8 mg/dL (8.4-10.2); CARBON DIOXIDE 30 mmol/L (22-30); CHLORIDE 100 mmol/L (98-107); GLUCOSE 141 mg/dL (75-110); POTASSIUM 4.7 mmol/L (3.6-5.0)
[2018-12-10] MEDS: KETOROLAC TROMETHAMINE INJ/PF 30 MG/1 ML SDV IV SCH ×3 (05:56→22:09)
[2018-12-10] MEDS: METRONIDAZOLE 500 MG/NS RTU 500 MG/100 ML RTUPB IV SCH (05:56)
[2018-12-10] MEDS: ONDANSETRON HCL INJ/PF 4 MG/2 ML SDV IV PRN ×2 (08:48→22:09)
[2018-12-10] MEDS: DEXTROSE 5%-LACTATED RINGERS 1,000 ML IV PRN ×2 (08:50→22:11)
[2018-12-10] MEDS ORDERED: NORMAL SALINE 1000 ML 1,000 ML IV ONE ×2 (09:09→09:10)
--- NOTE | 2018-12-10 09:15 | PDOC PROGRESS REPORT ---
Subjective Progress Note for:: 12/10/18 Reason For Visit: GASTRIC VOLVULOUS, RECURRENT HIATAL HERNIA Physical Exam Vital Signs: Temp Pulse Resp BP Pulse Ox 99.4 F 110 H 18 105/61 97 12/10/18 03:47 12/10/18 03:47 12/10/18 06:00 12/10/18 03:47 12/10/18 05:33 Intake & Output 12/09/18 12/10/18 12/11/18 06:59 06:59 06:59 Intake Total 0 6316 0 Output Total 2585 Balance 0 3731 0 Weight 83.91 kg 84.2 kg Results Laboratory Results: 12/10/18 03:58 12/10/18 03:58 12/10/18 12/10/18 03:58 03:58 WBC 9.7 RBC 4.31 L Hgb 14.1 Hct 40.4 MCV 94 MCH 32.8 MCHC 35.0 RDW 13.6 Plt Count 204 Seg Neutrophils % 84.6 H Lymphocytes % 7.2 L Monocytes % 8.2 Eosinophils % 0.0 Basophils % 0.0 Absolute Neutrophils 8.2 Absolute Lymphocytes 0.7 Absolute Monocytes 0.8 Absolute Eosinophils 0.0 Absolute Basophils 0.0 Sodium 137.7 Potassium 4.7 Chloride 100 Carbon Dioxide 30 Anion Gap 8 BUN 21 H Creatinine 1.23 Est GFR ( Amer) > 60 Est GFR (Non-Af Amer) > 60 Glucose 141 H Calcium 7.8 L Impressions: Chest X-Ray 12/09/18 00:00 IMPRESSION: Left basilar atelectatic changes. Assessment & Plan - Diagnosis (1) Incarcerated hiatal hernia Is this a current diagnosis for this admission?: Yes (2) Gastric volvulus Is this a current diagnosis for this admission?: Yes - Plan Summary Plan Summary: Is a 53-year-old male status post laparoscopic converted to open recurrent, incarcerated hiatal hernia repair with mesh. He also underwent pyloroplasty for gastric outlet obstruction as well as gastropexy. Patient reports nausea this morning. His NG tube is working well. His pain is reasonably well-controlled with a UNIT OPERATOR. His urine output has been adequate. Maintain NG tube for now. Plan for upper GI series through NG on Wednesday. Maintain Shoemaker for now due to immobility. DVT prophylaxis. Okay for ice chips. Continue UNIT OPERATOR for now.
[2018-12-10] MEDS: FAMOTIDINE INJ/PF 20 MG/2 ML SDV IV SCH ×2 (13:08→22:03)
[2018-12-10] MEDS: ENOXAPARIN SODIUM INJ 40 MG/0.4 ML DISP.SYRIN SUBCUT SCH (13:09)
[2018-12-10] MEDS: MORPHINE SULFATE 60 MG/60 ML RTUINJ IV PRN (15:56)
[2018-12-11 05:50] LABS: ABSOLUTE LYMPHOCYTES (AUTO) 0.5 10^3/uL (0.5-4.7); ABSOLUTE MONOCYTES (AUTO) 0.7 10^3/uL (0.1-1.4); BASOPHILS % (AUTO) 0.1 % (0-2); HEMATOCRIT 38.4 % (37.9-51.0); HEMOGLOBIN 13.2 g/dL (13.5-17.0); LYMPHOCYTES % (AUTO) 5.7 % (13-45); MEAN CORPUSCULAR HEMOGLOBIN 32.6 pg (27.0-33.4); MEAN CORPUSCULAR HGB CONC 34.2 g/dL (32.0-36.0); MEAN CORPUSCULAR VOLUME 95 fl (80-97); MONOCYTES % (AUTO) 7.5 % (3-13); PLATELET COUNT 166 10^3/uL (150-450); RED BLOOD COUNT 4.04 10^6/uL (4.35-5.55); RED CELL DISTRIBUTION WIDTH 13.6 % (11.5-14.0); SEGMENTED NEUTROPHILS % (AUTO) 86.7 % (42-78); TOTAL CELLS COUNTED % (AUTO) 100 %; WHITE BLOOD COUNT 9.3 10^3/uL (4.0-10.5)
[2018-12-11 06:14] LABS: ANION GAP 5 (5-19); BLOOD UREA NITROGEN 26 mg/dL (7-20); CARBON DIOXIDE 30 mmol/L (22-30); CHLORIDE 102 mmol/L (98-107); GLUCOSE 108 mg/dL (75-110); POTASSIUM 4.6 mmol/L (3.6-5.0)
[2018-12-11] MEDS: KETOROLAC TROMETHAMINE INJ/PF 30 MG/1 ML SDV IV SCH (06:19)
[2018-12-11] MEDS: DEXTROSE 5%-LACTATED RINGERS 1,000 ML IV PRN (06:21)
[2018-12-11] MEDS ORDERED: NORMAL SALINE 1000 ML 1,000 ML IV ONE ×2 (07:00→20:15)
[2018-12-11] MEDS ORDERED: CALCIUM GLUCONATE 2,000 MG in DEXTROSE 5%-WATER 100 ML IV ONE ×2 (07:00→10:00)
[2018-12-11] MEDS: FAMOTIDINE INJ/PF 20 MG/2 ML SDV IV SCH ×2 (11:27→21:41)
[2018-12-11] MEDS: ENOXAPARIN SODIUM INJ 40 MG/0.4 ML DISP.SYRIN SUBCUT SCH (11:28)
[2018-12-11] MEDS: PROMETHAZINE HCL INJ 25 MG/1 ML VIAL IV PRN (11:43)
--- NOTE | 2018-12-11 12:05 | PDOC PROGRESS REPORT ---
Subjective Progress Note for:: 12/11/18 Reason For Visit: GASTRIC VOLVULOUS, RECURRENT HIATAL HERNIA Physical Exam Vital Signs: Temp Pulse Resp BP Pulse Ox 97.9 F 108 H 18 113/59 L 91 L 12/10/18 23:32 12/10/18 23:32 12/11/18 07:20 12/10/18 23:32 12/10/18 23:32 Intake & Output 12/10/18 12/11/18 12/12/18 06:59 06:59 06:59 Intake Total 6316 1999 Output Total 2585 1915 Balance 3731 85 Weight 84.2 kg 81.6 kg Results Laboratory Results: 12/11/18 05:19 12/11/18 05:19 12/11/18 12/11/18 05:19 05:19 WBC 9.3 RBC 4.04 L Hgb 13.2 L Hct 38.4 MCV 95 MCH 32.6 MCHC 34.2 RDW 13.6 Plt Count 166 Seg Neutrophils % 86.7 H Lymphocytes % 5.7 L Monocytes % 7.5 Eosinophils % 0.0 Basophils % 0.1 Absolute Neutrophils 8.0 Absolute Lymphocytes 0.5 Absolute Monocytes 0.7 Absolute Eosinophils 0.0 Absolute Basophils 0.0 Sodium 136.9 L Potassium 4.6 Chloride 102 Carbon Dioxide 30 Anion Gap 5 BUN 26 H Creatinine 1.49 H Est GFR ( Amer) 59 L Est GFR (Non-Af Amer) 49 L Glucose 108 Calcium 7.0 L* Impressions: Chest X-Ray 12/09/18 00:00 IMPRESSION: Left basilar atelectatic changes. Assessment & Plan - Diagnosis (1) Incarcerated hiatal hernia Is this a current diagnosis for this admission?: Yes (2) Gastric volvulus Is this a current diagnosis for this admission?: Yes - Plan Summary Plan Summary: This is a 53-year-old male status post laparoscopic converted to open recurrent, incarcerated hiatal hernia repair with mesh. He also underwent pyloroplasty for gastric outlet obstruction as well as gastropexy. The pt is very sleepy this morning. His NG tube is productive of bilious fluid. His urine output has been adequate. DOUG is minimally productive of sanguinous fluid. Maintain NG tube for now. Plan for upper GI series through NG on Wednesday. Maintain Reed for now due to immobility and increased creatnine. DVT prophylaxis. Okay for ice chips. Pt very sleepy today --> discontinue continuous dose on Morphine NETWORK MGR. Leave demand dosing in-place. Creatnine elevated some today. Likely related to GI losses from NG, coupled with Toradol's renal effects --> D/c toradol. Use IV acetaminophen instead. Change IVF to NS at 150. 1 liter NS bolus today. Maintaine reed for strict UOP's.
[2018-12-11] MEDS: NORMAL SALINE 1000 ML 1,000 ML IV PRN ×2 (13:19→21:48)
[2018-12-11] MEDS: ACETAMINOPHEN 1,000 MG/100 ML RTUPB IV SCH ×2 (15:20→21:41)
[2018-12-12] MEDS: PROMETHAZINE HCL INJ 25 MG/1 ML VIAL IV PRN ×2 (02:29→13:12)
[2018-12-12 05:17] LABS: ABSOLUTE LYMPHOCYTES (AUTO) 0.4 10^3/uL (0.5-4.7); ABSOLUTE MONOCYTES (AUTO) 0.5 10^3/uL (0.1-1.4); ABSOLUTE NEUT (AUTO) 6.3 10^3/uL (1.7-8.2); BASOPHILS % (AUTO) 0.2 % (0-2); EOSINOPHILS % (AUTO) 0.2 % (0-6); HEMATOCRIT 31.6 % (37.9-51.0); LYMPHOCYTES % (AUTO) 5.4 % (13-45); MEAN CORPUSCULAR HEMOGLOBIN 32.9 pg (27.0-33.4); MEAN CORPUSCULAR HGB CONC 34.4 g/dL (32.0-36.0); MEAN CORPUSCULAR VOLUME 96 fl (80-97); MONOCYTES % (AUTO) 7.5 % (3-13); PLATELET COUNT 156 10^3/uL (150-450); RED CELL DISTRIBUTION WIDTH 13.7 % (11.5-14.0); SEGMENTED NEUTROPHILS % (AUTO) 86.7 % (42-78); TOTAL CELLS COUNTED % (AUTO) 100 %; WHITE BLOOD COUNT 7.2 10^3/uL (4.0-10.5)
[2018-12-12] MEDS: ACETAMINOPHEN 1,000 MG/100 ML RTUPB IV SCH ×3 (05:31→21:00)
[2018-12-12 05:44] LABS: ALBUMIN 2.5 g/dL (3.5-5.0); ALKALINE PHOSPHATASE 31 U/L (38-126); ANION GAP 6 (5-19); ASPARTATE AMINO TRANSFERASE 103 U/L (17-59); BILIRUBIN,DIRECT 0.5 mg/dL (0.0-0.4); BILIRUBIN,TOTAL 1.7 mg/dL (0.2-1.3); BLOOD UREA NITROGEN 22 mg/dL (7-20); CARBON DIOXIDE 26 mmol/L (22-30); CHLORIDE 106 mmol/L (98-107); GLUCOSE 87 mg/dL (75-110); HEMOGLOBIN 10.9 g/dL (13.5-17.0); POTASSIUM 4.2 mmol/L (3.6-5.0); TOTAL PROTEIN 4.9 g/dL (6.3-8.2)
[2018-12-12 05:58] LABS: CALCIUM 6.9 mg/dL (8.4-10.2)
[2018-12-12] MEDS ORDERED: CALCIUM GLUCONATE 2,000 MG in DEXTROSE 5%-WATER 100 ML IV ONE ×2 (06:45→09:00)
[2018-12-12] MEDS: MAGNESIUM SULFATE 1 GM/D5W 100 ML IV SCH ×2 (07:05→10:39)
--- NOTE | 2018-12-12 08:06 | PDOC PROGRESS REPORT ---
Subjective Progress Note for:: 12/12/18 Reason For Visit: GASTRIC VOLVULOUS, RECURRENT HIATAL HERNIA Physical Exam Vital Signs: Temp Pulse Resp BP Pulse Ox 97.5 F 89 16 121/85 94 12/11/18 23:30 12/11/18 23:30 12/12/18 07:37 12/11/18 23:30 12/12/18 07:37 Intake & Output 12/11/18 12/12/18 12/13/18 06:59 06:59 06:59 Intake Total 1999 5300 Output Total 1915 1150 Balance 85 4150 Weight 81.6 kg 96.8 kg Results Laboratory Results: 12/12/18 05:01 12/12/18 05:01 12/12/18 12/12/18 12/12/18 05:01 05:01 05:01 WBC 7.2 RBC 3.30 L Hgb 10.9 L D Hct 31.6 L MCV 96 MCH 32.9 MCHC 34.4 RDW 13.7 Plt Count 156 Seg Neutrophils % 86.7 H Lymphocytes % 5.4 L Monocytes % 7.5 Eosinophils % 0.2 Basophils % 0.2 Absolute Neutrophils 6.3 Absolute Lymphocytes 0.4 L Absolute Monocytes 0.5 Absolute Eosinophils 0.0 Absolute Basophils 0.0 Sodium 137.5 Potassium 4.2 Chloride 106 Carbon Dioxide 26 Anion Gap 6 BUN 22 H Creatinine 1.20 Est GFR ( Amer) > 60 Est GFR (Non-Af Amer) > 60 Glucose 87 Calcium 6.9 L* Ionized Calcium Cristian 1.04 L Magnesium 1.6 Total Bilirubin 1.7 H AST 103 H Alkaline Phosphatase 31 L Total Protein 4.9 L Albumin 2.5 L Impressions: Chest X-Ray 12/09/18 00:00 IMPRESSION: Left basilar atelectatic changes. Assessment & Plan - Diagnosis (1) Incarcerated hiatal hernia Is this a current diagnosis for this admission?: Yes (2) Gastric volvulus Is this a current diagnosis for this admission?: Yes - Plan Summary Plan Summary: This is a 53-year-old male status post laparoscopic converted to open recurrent, incarcerated hiatal hernia repair with mesh. He also underwent pyloroplasty for gastric outlet obstruction as well as gastropexy. The pt is more awake this morning. His urine output has improved. DOUG is minimally productive of sanguinous fluid. The pt has pulled his NG out a considerable amount overnight. Yesterday it was 70cm at the nares, today it is 30 cm at the nares. NG has been pulled out. Doubt it resides within the stomach at this point. Will D/c NG today, as it is will not provide benefit above the Ann. Plan for upper GI series today. D/c Shoemaker. DVT prophylaxis. NPO until Upper GI series obtained. Continue current QA SOFTWARE TEST ENGINEER setting. Creatnine much improved today. Hypomagnesemia --> replace. Hypocalcemia --> replace.
[2018-12-12] MEDS: ENOXAPARIN SODIUM INJ 40 MG/0.4 ML DISP.SYRIN SUBCUT SCH (10:38)
[2018-12-12] MEDS: FAMOTIDINE INJ/PF 20 MG/2 ML SDV IV SCH ×2 (10:39→21:01)
--- NOTE | 2018-12-12 14:03 | RADIOLOGY REPORT (SQ) ---
EXAM DESCRIPTION: UGI SERIES COMPLETED DATE/TIME: 12/12/2018 12:21 pm REASON FOR STUDY: s/p hiatal hernia and pyloroplasty ? obst/leak K44.9 DIAPHRAGMATIC HERNIA WITHOUT OBSTRUCTION OR GANGRENE K31.89 OTHER DISEASES OF STOMACH AND DUODENUM Z98.890 OTHER SPECIFIED POST PROCEDURAL STATES COMPARISON: Upper GI 11/04/2018 TECHNIQUE: Under fluoroscopic guidance, patient ingested water soluble contrast. Fluoroscopic spot i mages and routine radiographic images acquired and stored on PACS. LIMITATIONS: None. FLUOROSCOPY TIME: FLUORO TIME: 3 minutes 55 seconds of fluoroscopy was used. 30 images saved to PACS. FINDINGS: NEUROMUSCULAR COORDINATION OF SWALLOW: Normal. No aspiration. ESOPHAGEAL MOTILITY: Normal peristalsis. No esophageal spasm. ESOPHAGEAL MUCOSA: Normal mucosa without masses or ulceration. GASTRO-ESOPHAGEAL JUNCTION: Position of the GE junction is below the diaphragm. There is been reduct ion of the prior large hiatal hernia and gastric volvulus. Mild narrowing of the distal esophagus at the GE junction. No extravasation or leak of contrast is seen. STOMACH: There has been reduction of the patient's prior gastric volvulus. No residual hiatal hernia is seen. GASTRIC OUTLET: Postoperative changes seen of the pyloric channel which appears narrowed but not obst ructive, most likely due to postoperative edema. No extravasation or leak of contrast can be seen. Position of the pyloric channel and proximal duodenum are normal within the right upper quadrant. DUODENAL BULB: Not clearly identified due to postoperative edema. DUODENUM: Mucosa normal. No extrinsic masses or malrotation. PROXIMAL JEJUNUM: Normal mucosal pattern. No dilatation, segmentation, strictures or masses. NON-GI TRACT STRUCTURES: No significant finding. OTHER: No other significant finding. IMPRESSION: THERE IS BEEN COMPLETE REDUCTION OF THE PATIENT'S GASTRIC VOLVULUS AND HILAR HERNIA WITH POSTOPERATIVE CHANGES SEEN OF THE DISTAL ESOPHAGUS AND PYLORIC CHANNEL WITHOUT EVIDENCE OF EXTRAVASA TION OR LEAK. CHANGES OF THE DISTAL ESOPHAGUS AND PYLORIC CHANNEL INCLUDE MILD NARROWING, MOST LIKEL Y DUE TO POSTOPERATIVE EDEMA. THERE IS PROPER POSITIONING OF THE GE JUNCTION AND PYLORUS. COMMENT: Quality ID [id number]: Final reports for procedures using fluoroscopy that document radiation exp osure indices, or exposure time and number of fluorographic images (if radiation exposure indices are not available) TECHNICAL DOCUMENTATION: JOB ID: [id number] [email or web address]- All Rights Reserved Reading location - IP/workstation name: [email or web address]
[2018-12-12] MEDS ORDERED: HALOPERIDOL 1 MG TABLET ONE (16:39)
[2018-12-12] MEDS: NORMAL SALINE 1000 ML 1,000 ML IV PRN (21:03)
[2018-12-13] MEDS: HALOPERIDOL LACTATE ORAL SOLN 10 MG/5 ML UDCUP PO SCH ×2 (02:49→09:03)
[2018-12-13 05:06] LABS: ANION GAP 9 (5-19); BLOOD UREA NITROGEN 21 mg/dL (7-20); CARBON DIOXIDE 26 mmol/L (22-30); CHLORIDE 106 mmol/L (98-107); GLUCOSE 82 mg/dL (75-110); POTASSIUM 4.1 mmol/L (3.6-5.0)
[2018-12-13] MEDS: ACETAMINOPHEN 1,000 MG/100 ML RTUPB IV SCH ×3 (06:42→21:14)
[2018-12-13] MEDS ORDERED: CALCIUM GLUCONATE 1000 MG/10 ML INJ IV SCH (07:15)
[2018-12-13] MEDS: OXYCODONE HCL IR 5 MG TABLET PO PRN ×4 (08:00→21:12)
[2018-12-13] MEDS ORDERED: CALCIUM GLUCONATE 2,000 MG in DEXTROSE 5%-WATER 100 ML IV ONE (09:00)
[2018-12-13] MEDS: FAMOTIDINE INJ/PF 20 MG/2 ML SDV IV SCH ×2 (09:03→21:14)
[2018-12-13] MEDS: ENOXAPARIN SODIUM INJ 40 MG/0.4 ML DISP.SYRIN SUBCUT SCH (09:04)
[2018-12-13] MEDS: KETOROLAC TROMETHAMINE INJ/PF 30 MG/1 ML SDV IV PRN (09:11)
[2018-12-13] MEDS: ONDANSETRON HCL INJ/PF 4 MG/2 ML SDV IV PRN (11:18)
[2018-12-13] MEDS: NORMAL SALINE 1000 ML 1,000 ML IV PRN (11:53)
--- NOTE | 2018-12-13 12:45 | PDOC PROGRESS REPORT ---
Subjective Progress Note for:: 12/13/18 Reason For Visit: GASTRIC VOLVULOUS, RECURRENT HIATAL HERNIA Physical Exam Vital Signs: Temp Pulse Resp BP Pulse Ox 98.4 F 76 20 142/78 H 96 12/13/18 05:06 12/13/18 05:06 12/13/18 05:06 12/13/18 05:06 12/13/18 05:06 Intake & Output 12/12/18 12/13/18 12/14/18 06:59 06:59 06:59 Intake Total 5300 1840 100 Output Total 1150 1820 Balance 4150 20 100 Weight 96.8 kg Results Laboratory Results: 12/12/18 05:01 12/13/18 04:23 12/13/18 04:23 Sodium 140.6 Potassium 4.1 Chloride 106 Carbon Dioxide 26 Anion Gap 9 BUN 21 H Creatinine 0.96 Est GFR ( Amer) > 60 Est GFR (Non-Af Amer) > 60 Glucose 82 Calcium 8.0 L Impressions: Chest X-Ray 12/09/18 00:00 IMPRESSION: Left basilar atelectatic changes. Upper GI Series 12/12/18 00:00 IMPRESSION: THERE IS BEEN COMPLETE REDUCTION OF THE PATIENT'S GASTRIC VOLVULUS AND HILAR HERNIA WITH POSTOPERATIVE CHANGES SEEN OF THE DISTAL ESOPHAGUS AND PYLORIC CHANNEL WITHOUT EVIDENCE OF EXTRAVASATION OR LEAK. CHANGES OF THE DISTAL ESOPHAGUS AND PYLORIC CHANNEL INCLUDE MILD NARROWING, MOST LIKELY DUE TO POSTOPERATIVE EDEMA. THERE IS PROPER POSITIONING OF THE GE JUNCTION AND PYLORUS. Assessment & Plan - Diagnosis (1) Incarcerated hiatal hernia Is this a current diagnosis for this admission?: Yes (2) Gastric volvulus Is this a current diagnosis for this admission?: Yes - Plan Summary Plan Summary: This is a 53-year-old male status post laparoscopic converted to open recurrent, incarcerated hiatal hernia repair with mesh. He also underwent pyloroplasty for gastric outlet obstruction as well as gastropexy. The pt had acute confusion yesterday, likely narcotic related. His urine output is adequate. DOUG is minimally productive of sanguinous fluid. He is passing flatus and having bowel movements. He complains of pain. Upper GI series looked good and clears were started. The pt has tolerated clears well --> will advance to full liquid diet. Cont with DVT prophylaxis. SENIOR IT ENGINEER discontinued yesterday due to acute confusion. Pt much more awake and appropriate today, although he complains of significat amounts of pain. Continue IV acetaminophen. Start oral Oxycodone. Restart PRN Toradol (diminished dose). Creatnine remains improved. Recheck electrolytes tomorrow. Hypocalcemia --> replace.
[2018-12-14] MEDS: OXYCODONE HCL IR 5 MG TABLET PO PRN ×5 (02:17→21:17)
[2018-12-14] MEDS: NORMAL SALINE 1000 ML 1,000 ML IV PRN (02:18)
[2018-12-14] MEDS: KETOROLAC TROMETHAMINE INJ/PF 30 MG/1 ML SDV IV PRN ×3 (03:54→16:08)
[2018-12-14 05:51] LABS: ANION GAP 7 (5-19); BLOOD UREA NITROGEN 21 mg/dL (7-20); CALCIUM 8.2 mg/dL (8.4-10.2); CARBON DIOXIDE 27 mmol/L (22-30); CHLORIDE 103 mmol/L (98-107); GLUCOSE 90 mg/dL (75-110); POTASSIUM 3.6 mmol/L (3.6-5.0)
[2018-12-14] MEDS: ACETAMINOPHEN 1,000 MG/100 ML RTUPB IV SCH ×2 (05:54→13:22)
--- NOTE | 2018-12-14 07:26 | PDOC PROGRESS REPORT ---
Subjective Progress Note for:: 12/14/18 Reason For Visit: GASTRIC VOLVULOUS, RECURRENT HIATAL HERNIA Physical Exam Vital Signs: Temp Pulse Resp BP Pulse Ox 99.0 F 69 16 155/72 H 100 12/14/18 01:26 12/14/18 01:26 12/14/18 01:26 12/14/18 01:26 12/14/18 01:26 Intake & Output 12/13/18 12/14/18 12/15/18 06:59 06:59 06:59 Intake Total 1840 2980 Output Total 1820 25 Balance 20 2955 Weight 96.7 kg Results Laboratory Results: 12/12/18 05:01 12/14/18 04:39 12/14/18 12/14/18 04:39 04:39 Sodium 136.6 L Potassium 3.6 Chloride 103 Carbon Dioxide 27 Anion Gap 7 BUN 21 H Creatinine 0.94 Est GFR ( Amer) > 60 Est GFR (Non-Af Amer) > 60 Glucose 90 Calcium 8.2 L Ionized Calcium Cristian 1.10 L Magnesium 2.1 Impressions: Chest X-Ray 12/09/18 00:00 IMPRESSION: Left basilar atelectatic changes. Upper GI Series 12/12/18 00:00 IMPRESSION: THERE IS BEEN COMPLETE REDUCTION OF THE PATIENT'S GASTRIC VOLVULUS AND HILAR HERNIA WITH POSTOPERATIVE CHANGES SEEN OF THE DISTAL ESOPHAGUS AND PYLORIC CHANNEL WITHOUT EVIDENCE OF EXTRAVASATION OR LEAK. CHANGES OF THE DISTAL ESOPHAGUS AND PYLORIC CHANNEL INCLUDE MILD NARROWING, MOST LIKELY DUE TO POSTOPERATIVE EDEMA. THERE IS PROPER POSITIONING OF THE GE JUNCTION AND PYLORUS. Assessment & Plan - Diagnosis (1) Incarcerated hiatal hernia Is this a current diagnosis for this admission?: Yes (2) Gastric volvulus Is this a current diagnosis for this admission?: Yes - Plan Summary Plan Summary: This is a 53-year-old male status post laparoscopic converted to open recurrent, incarcerated hiatal hernia repair with mesh. He also underwent pyloroplasty for gastric outlet obstruction as well as gastropexy. The pt has no confusion today. His urine output is adequate. DOUG is minimally productive of sanguinous fluid. He is passing flatus and having bowel movements. He still complains of pain. Upper GI series looked good and clears were started. The pt is now tolerating full liquid diet. Cont with DVT prophylaxis. Continue IV acetaminophen, oral Oxycodone, PRN Toradol. Creatnine remains improved. Hypocalcemia --> replace
[2018-12-14] MEDS ORDERED: CALCIUM GLUCONATE 1000 MG/10 ML INJ IV SCH (07:30)
[2018-12-14] MEDS ORDERED: CALCIUM GLUCONATE 2,000 MG in DEXTROSE 5%-WATER 100 ML IV ONE (09:00)
[2018-12-14] MEDS: ENOXAPARIN SODIUM INJ 40 MG/0.4 ML DISP.SYRIN SUBCUT SCH (09:09)
[2018-12-14] MEDS: FAMOTIDINE INJ/PF 20 MG/2 ML SDV IV SCH ×2 (09:09→21:18)
--- NOTE | 2018-12-14 09:18 | Operative Report ---
Nonrecallable Operative Report DATE OF SURGERY: 12/09/18 PREOPERATIVE DIAGNOSIS: 1. Recurrent hiatal hernia. 2. Totally intrathoracic stomach. 3. Gastric volvulus. 4. Gastric outflow dysfunction POSTOPERATIVE DIAGNOSIS: 1-4. Same as above. 5. Dense intrathoracic and intra- abdominal adhesions, necessitating an open operation. OPERATION: 1. Robot-assisted laparoscopic, converted to open hiatal hernia repair. 2. Implantation of [place] bio-A hiatal hernia mesh. 3. Ann fundoplication. 4. Gastropexy. 5. EGD. 6. Pyloroplasty SURGEON: MIGUEL COLBY 1ST EXECUTIVE VICE PRESIDENT BUSINESS DEVELOPMENT: LAKISHA GERBER ANESTHESIA: GA TISSUE REMOVED OR ALTERED: None COMPLICATIONS: Conversion to open procedure, due to dense intra-abdominal intrathoracic adhesi ons. ESTIMATED BLOOD LOSS: 400 cc PROCEDURE: Drains/implants: 1. [place] Bio-A hiatal hernia mesh. 2. 15 Divehi round Jose drain in the left upper quadrant, extending posterior to the hiatal hernia repair and anterior to the pyloroplasty. Procedure in detail: After informed consent was obtained, the patient was brought to the operating room and laid in the supine position. The area of the abdomen was prepped and draped in a normal sterile fashion. The previous laparoscopic hiatal hernia repair scars were evident on the abdominal wall. The skin incision was made at the supraumbilical abdominal scar. Dissection was carried through the subcutaneous tissue using sharp and blunt dissection. The linea alba fascia was incised sharply, the abdomen was entered sharply. The balloon trocar was inserted, and pneumoperitoneum was achieved. A Left upper quadrant and left lateral 8 mm robotic trocar were placed under direct laparoscopic visualization, as was a right upper quadrant 8 mm robotic trocar. A 5 mm standard trocar was placed in the right lateral abdomen. The robot was then brought over the patient and docked appropriately. The liver retractor was placed into the right lateral abdominal trocar and used to retract the left lobe of the liver anteriorly. I then assumed my position at the surgeon's console. Attention was turned to freeing of the falciform ligament. Bipolar electrocautery was used to cauterize the falciform ligament, standard monopolar electrocautery was then used to divide the falciform ligament. This was done to facilitate movement of the robotic arms. Next, attention was turned to freeing of the intra-abdominal adhesions. There were multiple adhesions of the liver to the omentum and duodenum. These were lysed sharply. Eventually, the left lobe of the liver was completely freed and adequately retracted anteriorly. Once this was completed, attention was turned to dissection of the hiatus. There was a large hiatal hernia. Dissection was begun on the right side at approximately 10 o'clock. The right faisal of the diaphragm was identified. The hernia sac was cleaned from the faisal, and an attempt was made to reduce the hernia sac. Dissection was carried anteriorly, reducing the hernia sac. This was successful until the dissection met approximately 4 o'clock in the left lateral/posterior position. There were concrete-like adhesions in this area. The left lateral and posterior dissections were exceptionally difficult. Secondary to minimal progress, a decision was made to open the patient and continue the dissection using direct palpation. A vertical midline incision was created with a 10 blade scalpel from the xiphoid process to the supraumbilical trocar site. The abdomen was opened, the trochars were removed, the laparoscopic liver retractor was removed, and the Omni retractor was placed on the patient. This afforded better visualization and an ability to palpate the wall of the stomach. The concrete-like adhesions were then taken down using sharp and blunt dissection. This was done laterally on the left and continued posteriorly, until the stomach was completely freed. It was reduced back into the abdominal cavity. The stomach and esophagus were then visually inspected and found to be free of any defects, tears, or perforations. Next, attention was turned to closure of the hiatal hernia defect. The stomach was retracted laterally. The diaphragmatic crura were grasped with long Tieton clamps. A 58 Divehi bougie was placed down the esophagus by anesthesia. It passed into the stomach very easily, with no difficulty. The hiatus was closed using 2-0 Ethibond suture in [id number] fashion. 2 sutures were used. This was performed with the bougie in place. Next, a [place] bio-A hiatal hernia mesh was placed over the crural repair. It was sutured to the hiatus also using 2-0 Ethibond suture. The bougie was removed, and a loose Ann fundoplication was performed. The fundus was wrapped posteriorly. The fundoplication was created with 2-0 Ethibond sutures. This was done, ensuring 3 cm of intra-abdominal esophagus. The first suture incorporated fundus, stomach, and esophagus. The remaining 3 sutures were from fundus to anterior stomach. Once the fundoplication was completed, attention was turned to performing the EGD. The gastroscope was placed down the esophagus, to the GE junction. The scope passed easily into the stomach. The stomach was insufflated with air, and examined. There were no obvious perforations, hematomas, or areas of devascularization. A retroflexion maneuver was performed, demonstrating an intact fundoplication. The scope was then withdrawn into the distal esophagus, which was free of any significant defect. Specifically there were no hematomas, perforations, or evidence of full-thickness damage. Air was then suctioned from the stomach and esophagus. The flexible gastroscope was removed from the oropharynx. I then scrubbed back into the case. Due to the patient's history of gastric outlet obstruction, and the large amount of dissection required, a pyloroplasty was felt prudent. Bovie electrocautery was used to cauterize across the pylorus, extending both proximally and distally onto the stomach and duodenum respectively. Next, the longitudinal incision was closed transversely. The inner layer was closed using 3-0 PDS suture in running [place] fashion. The outer layer was closed using 3-0 Vicryl Lembert sutures. Once this was completed, attention was turned to gastropexy so that the stomach may maintain its normal shape. Several sutures were placed from the fundoplication to the hiatus and the gastric body to the anterior abdominal wall. After the gastropexy was completed, the abdomen was irrigated and suctioned. Hemostasis was ensured. A 15 Divehi round Jose drain was placed through the lateralmost left sided trocar site. The drain was passed posterior to the fundoplication and stomach. It was wrapped anteriorly around the pyloroplasty. The drain was sutured to the skin using 2-0 nylon suture. Attention was then turned to abdominal wall closure. The Omni retractor was removed. The linea alba fascia was closed using #1 double-stranded loop PDS suture in simple running fashion. The overlying skin was then closed using skin anna. Dressings were fashioned, and the procedure was concluded. All sponge, instrument, and needle counts were correct x2. Condition: Stable. Lakisha Gerber PA-C was scrubbed and present the entirety the procedure. She assisted with all portions of the procedure including placement of the robotic trochars, docking of the robot, exchanging of the robotic instruments, opening of the abdomen, dissection of the hiatus, performing of the fundoplication, performing of the pyloroplasty, closure of the abdomen, and closure of the skin.
[2018-12-14] MEDS: METOCLOPRAMIDE HCL ORAL SOLN 10 MG/10 ML UDCUP PO SCH ×3 (10:14→17:15)
[2018-12-14] MEDS ORDERED: MORPHINE SULFATE 10 MG/ML INJ ONE (10:40)
[2018-12-14] MEDS: ONDANSETRON HCL INJ/PF 4 MG/2 ML SDV IV PRN (10:53)
[2018-12-14] MEDS ORDERED: CETIRIZINE 10 MG TABLET PO PRN (15:17)
[2018-12-14] MEDS ORDERED: OXYCODONE-ACETAMINOPHEN 5-325 MG TABLET ONE (16:06)
[2018-12-14] MEDS: OXYCODONE-ACETAMINOPHEN 5-325 MG TABLET PO PRN (16:07)
[2018-12-15] MEDS: OXYCODONE-ACETAMINOPHEN 5-325 MG TABLET PO PRN (02:33)
[2018-12-15] MEDS ORDERED: LEVOTHYROXINE SODIUM 0.05 MG TABLET PO SCH (06:00)
[2018-12-15] MEDS: OXYCODONE HCL IR 5 MG TABLET PO PRN (06:03)
--- NOTE | 2018-12-15 09:36 | RADIOLOGY REPORT (SQ) ---
EXAM DESCRIPTION: CHEST SINGLE VIEW COMPLETED DATE/TIME: 12/15/2018 9:27 am REASON FOR STUDY: pain with inspiration COMPARISON: 12/09/2018 EXAM PARAMETERS: NUMBER OF VIEWS: One view. TECHNIQUE: Single frontal radiographic view of the chest acquired. RADIATION DOSE: NA LIMITATIONS: None. FINDINGS: Increased, now moderate left pleural effusion and associated atelectasis or consolidation. No significant pneumothorax. The right lung is normally aerated. IMPRESSION: Increased, now moderate left pleural effusion and associated atelectasis or consolidatio n. No significant pneumothorax. The right lung is normally aerated. TECHNICAL DOCUMENTATION: JOB ID: [id number] [employer]- All Rights Reserved Reading location - IP/workstation name: [email or web address]
[2018-12-15] MEDS ORDERED: CITALOPRAM HYDROBROMIDE 20 MG TABLET PO SCH (10:00)
[2018-12-15] MEDS ORDERED: (PENDING PHARMACY ID) (Citalopram Hydrobromide [Celexa] 40 MG) PO SCH (10:00)
[2018-12-15] MEDS: FAMOTIDINE INJ/PF 20 MG/2 ML SDV IV SCH (10:00)
[2018-12-15] MEDS ORDERED: TAMSULOSIN HCL 0.4 MG CAP.SR.24H PO SCH (10:00)
[2018-12-15] MEDS: ENOXAPARIN SODIUM INJ 40 MG/0.4 ML DISP.SYRIN SUBCUT SCH (10:01)
[2018-12-15] MEDS: METOCLOPRAMIDE HCL ORAL SOLN 10 MG/10 ML UDCUP PO SCH (10:03)
--- NOTE | 2018-12-15 13:20 | PDOC DISCHARGE SUMMARY ---
General - Admit/Disc Date/PCP Admission Date/Primary Care Provider: 12/09/18 14:37 [facility] Discharge Date: 12/15/18 - Discharge Diagnosis (1) Incarcerated hiatal hernia Is this a current diagnosis for this admission?: Yes (2) Gastric volvulus Is this a current diagnosis for this admission?: Yes - Additional Information Discharge Diet: Full Liquids Discharge Activity: No Lifting Over 10 Pounds, No Lifting/Push/Pulling Home Medications: Atorvastatin Calcium 40 mg PO QHS 07/12/17 Citalopram Hydrobromide [Celexa] 40 mg PO DAILY 07/12/17 Levothyroxine Sodium [Synthroid 0.05 mg Tablet] 0.05 mg PO Q6AM 07/12/17 Zolmitriptan 5 mg PO Q12HP PRN 07/12/17 Cetirizine HCl [Zyrtec 10 mg Tablet] 1 tab PO DAILYP PRN 10/04/18 Pantoprazole Sodium 40 mg PO DAILY 10/04/18 Sildenafil Citrate 100 mg PO DAILYP PRN 10/04/18 Tamsulosin HCl [Flomax] 0.4 mg PO DAILY 10/04/18 History of Present Illness History of Present Illness: SYED THORPE JR is a 53 year old male admitted with a recurrent hiatal hernia, intrathoracic stomach, and gastric volvulus. The patient underwent a robotic, converted to open, hiatal hernia repair, Ann fundoplication, and pyloroplasty. The patient was then taken to the floor in stable condition. Hospital Course Hospital Course: The patient was taken to floor after his operation in stable condition. He had an NG tube in place. The NG tube was left in place for the following 3 days. The patient remained on a CHIEF TECHNICAL OFFICER for several days after the operation. On postoperative day 3 the patient had pulled out his NG tube, and a Gastrografin swallow was performed. This showed an intact, and patent Ann fundoplication. It also demonstrated no evidence of gastric outlet obstruction, and no evidence of leakage at the pyloroplasty. Eventually, the patient was weaned off of his CHIEF TECHNICAL OFFICER. The patient did have narcotic induced confusion. Once his narcotics were de-escalated, his confusion resolved. The patient began ambulating, and tolerating clear liquids. He was advanced to full liquids, which he tolerated well. 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 By 12/15/2018 the patient was ambulating, tolerating full liquids, and his pain was controlled with oral medications. At this time it was felt that he had reached maximal hospital benefit and was fit for discharge. Physical Exam Vital Signs: Temp Pulse Resp BP Pulse Ox 98.6 F 110 H 20 144/88 H 95 12/14/18 23:42 12/14/18 23:42 12/14/18 23:42 12/14/18 23:42 12/14/18 23:42 Intake & Output 12/14/18 12/15/18 12/16/18 06:59 06:59 06:59 Intake Total 2980 3455 Output Total 25 300 Balance 2955 3155 Weight 96.7 kg 94.7 kg Results Laboratory Results: 12/12/18 05:01 12/14/18 04:39 Impressions: Upper GI Series 12/12/18 00:00 IMPRESSION: THERE IS BEEN COMPLETE REDUCTION OF THE PATIENT'S GASTRIC VOLVULUS AND HILAR HERNIA WITH POSTOPERATIVE CHANGES SEEN OF THE DISTAL ESOPHAGUS AND PYLORIC CHANNEL WITHOUT EVIDENCE OF EXTRAVASATION OR LEAK. CHANGES OF THE DISTAL ESOPHAGUS AND PYLORIC CHANNEL INCLUDE MILD NARROWING, MOST LIKELY DUE TO POSTOPERATIVE EDEMA. THERE IS PROPER POSITIONING OF THE GE JUNCTION AND PYLORUS. Chest X-Ray 12/15/18 00:00 IMPRESSION: Increased, now moderate left pleural effusion and associated atelectasis or consolidation. No significant pneumothorax. The right lung is normally aerated. Qualifiers - * PATIENT BEING DISCHARGED WITH ANY OF THE FOLLOWING DIAGNOSIS: No Acute Heart Failure - Is this a Heart Failure Patient?: No Plan Discharge Plan: Discharge home. Diet: Full liquids, protein supplement, no breads or carbonated beverages, no drinking through a straw. Activity: No lifting greater than 10 pounds. Follow-up with me in 7 to 10 days. Okay to shower. No tub baths or swimming pools until cleared by me. Percocet 10/325 mg p.o. every 6 hours as needed for pain. Reglan 5 mg p.o. 3 times daily with meals. Time Spent: Less than 30 Minutes
[2018-12-15 13:49] VITALS: BP 116/82
== END 2018-12-15 15:00 | disposition home or self-care (01) | DRG 328 ==
LOC: OROUT 05:20 → 5 14:37 → OROUT 14:37 → 5 16:28
PROVIDERS: ADMIT Surgery; ATTEND Surgery
PROC: 0DN94ZZ Release Duodenum, Percutaneous Endoscopic Approach (ICD-10-PCS; 2018-12-09)
PROC: 0DNU4ZZ Release Omentum, Percutaneous Endoscopic Approach (ICD-10-PCS; 2018-12-09)
PROC: 0FN04ZZ Release Liver, Percutaneous Endoscopic Approach (ICD-10-PCS; 2018-12-09)
PROC: 0DV40ZZ Restriction of Esophagogastric Junction, Open Approach (ICD-10-PCS; 2018-12-09)
PROC: 0DS60ZZ Reposition Stomach, Open Approach (ICD-10-PCS; 2018-12-09)
PROC: 0DQ70ZZ Repair Stomach, Pylorus, Open Approach (ICD-10-PCS; 2018-12-09)
PROC: 0DN60ZZ Release Stomach, Open Approach (ICD-10-PCS; 2018-12-09)
PROC: 0DJ08ZZ Inspection of Upper Intestinal Tract, Via Natural or Artificial Opening Endoscopic (ICD-10-PCS; 2018-12-09)
PROC: 0BUT0JZ Supplement Diaphragm with Synthetic Substitute, Open Approach (ICD-10-PCS; principal; 2018-12-09 07:30)
DX: K44.0 Diaphragmatic hernia with obstruction, without gangrene (principal); K31.89 Other diseases of stomach and duodenum; K66.0 Peritoneal adhesions (postprocedural) (postinfection); E83.51 Hypocalcemia; E83.42 Hypomagnesemia; R41.0 Disorientation, unspecified; T40.2X5A Adverse effect of other opioids, initial encounter; Y92.230 Patient room in hospital as the place of occurrence of the external cause; G47.30 Sleep apnea, unspecified; G43.909 Migraine, unspecified, not intractable, without status migrainosus; M19.90 Unspecified osteoarthritis, unspecified site; Z98.890 Other specified postprocedural states; E03.9 Hypothyroidism, unspecified; M41.9 Scoliosis, unspecified; Z53.31 Laparoscopic surgical procedure converted to open procedure
CPT/HCPCS: 36415; 71045; 71046; 74247; 790; 80048; 80053; 82330; 83735; 85025; 85027; 86850; 86900; 86901; 93005; 93010; C1781; C9290; J0131; J0610; J1100; J1170; J1650; J1741; J1885; J1940; J2250; J2270; J2370; J2405; J2550; J2704; J2710; J2765; J3010; J3370; J3475; J3490; J7030; J7050; J7060; J7121; S0028